=== PATIENT | female | born 1960 | race Caucasian/White ===

== ENCOUNTER → 2019-06-04 14:30 | Outpatient (CLI) | payer OTHER, SELFPAY ==
--- NOTE | 2019-06-04 | DI.MG.S_ITS ---
BILATERAL DIGITAL SCREENING MAMMOGRAM 3D/2D WITH CAD: 06/04/2019 CLINICAL: Routine screening. Comparison is made to exams dated: 07/24/2015 mammogram, 06/26/2012 mammogram, and 11/13/2009 mammogram - [facility]. There are scattered fibroglandular elements in both breasts. Current study was also evaluated with a Computer Aided Detection (CAD) system. No significant masses, calcifications, or other findings are seen in either breast. There has been no significant interval change. IMPRESSION: NEGATIVE There is no mammographic evidence of malignancy. A 1 year screening mammogram is recommended. This exam was interpreted at Station ID: [id number]. NOTE: For mammograms, a report in lay terms will be sent to the patient. Approximately 15% of breast malignancies will not be visualized mammographically. In the management of a palpable breast mass, a negative mammogram must not discourage biopsy of a clinically suspicious lesion. Electronically Signed By: Tiny campbell/marco antonio:06/04/2019 16:37:24 letter sent: Normal Exam ACR BI-RADS Category 1: Negative 3341F
== END ==
PROVIDERS: PCP Family Medicine; Visit Provider Family Medicine
DX: Z12.31 Encounter for screening mammogram for malignant neoplasm of breast (principal)
CPT/HCPCS: 77063; 77067

== ENCOUNTER → 2019-07-01 09:28 | Outpatient (CLI) | payer OTHER, SELFPAY ==
[2019-07-01 10:37] LABS: Add Manual Diff / Slide Review NO; Basophils Absolute Auto 0 /uL (0-100); Basophils Percent Auto 0.7 % (0-2); Eosinophils Absolute Auto 100 /uL (0-450); Eosinophils Percent Auto 1.9 % (2-4); Hematocrit 42.7 % (36-46); Hemoglobin 14.3 g/dL (12.0-16.0); Lymphocytes Absolute Auto 1700 /uL (1100-4500); Lymphocytes Percent Auto 29.3 % (25-40); Mean Corpuscular HGB Conc 33.6 % (30-36); Mean Corpuscular Hemoglobin 31.1 PG (26-34); Mean Corpuscular Volume 92.7 fL (80-100); Monocytes Absolute Auto 500 /uL (0-900); Neutrophils Absolute Auto 3400 /uL (1500-7000); Neutrophils Percent Auto 60.1 % (50-75); Platelet Count 167 X10^3/uL (150-400); Red Blood Cell Count 4.61 X10^6/uL (4.0-5.2); Red Cell Distribution Width 13.1 % (11.6-14.8); White Blood Cell Count 5.7 X10^3/uL (4.5-11.0)
[2019-07-01 11:02] LABS: Alanine Aminotransferase 22 IU/L (<35); Albumin 4.5 g/dL (3.5-5.0); Albumin Globulin Ratio 2.1 (1.0-2.8); Alkaline Phosphatase 65 U/L (38-126); Aspartate Aminotransferase 26 IU/L (14-36); BUN Creatinine Ratio 22.9 (6-22); Bilirubin Total 0.7 mg/dL (0.2-1.3); Blood Urea Nitrogen 16 mg/dL (7-17); Carbon Dioxide 28 mmol/L (22-32); Chloride 106 mmol/L (98-107); Cholesterol 222 mg/dL (140-199); Estimated Glomerular Filt Rate > 60.0 mL/min (>60); Globulin 2.1 g/dL (1.7-4.1); Glucose 92 mg/dL (80-110); HDL Cholesterol 79 mg/dL (40-60); HEMOLYSIS < 15 (0-50); LDL Cholesterol Calculated 124 mg/dL (<100); Potassium 4.9 mmol/L (3.4-5.1); Sodium 141 mmol/L (137-145); Total Protein 6.6 g/dL (6.3-8.2); Triglycerides 95 mg/dL (35-150)
[2019-07-01 11:30] LABS: Thyroid Stimulating Hormone 1.95 uIU/mL (0.47-4.68)
== END ==
PROVIDERS: PCP Family Medicine; Visit Provider Family Medicine
DX: Z13.220 Encounter for screening for lipoid disorders (principal); Z13.29 Encounter for screening for other suspected endocrine disorder; Z13.6 Encounter for screening for cardiovascular disorders
CPT/HCPCS: 36415; 80053; 80061; 84443; 85025

== ENCOUNTER → 2020-06-24 09:09 | Outpatient (CLI) | payer OTHER, SELFPAY ==
[2020-06-24 11:20] LABS: COVID19 -Nasal RAPID Negative (Negative)
== END ==
PROVIDERS: PCP Family Medicine; Visit Provider Nurse Practitioner
DX: Z11.59 Encounter for screening for other viral diseases (principal)
CPT/HCPCS: 87635

== ENCOUNTER 2020-06-26 06:36 | Day surgery (SDC) | payer OTHER, SELFPAY ==
[2020-06-26] VITALS (14 sets, daily range): BP systolic 150–178; BP diastolic 83–102; PULSE 48–73; RESP 10–18; TEMP 35.7–36.6; O2SAT 93–97; BMI 27.3
--- NOTE | 2020-06-26 | DI.RAD.S_ITS ---
PROCEDURE: XR ABDOMEN 1V INDICATIONS: nausea after colonoscopy r/o free air TECHNIQUE: One view of the abdomen acquired. COMPARISON: None. FINDINGS: Surgical changes and devices: None. Bowel: Bowel gas pattern is normal. Soft tissues: No suspicious abdominal calcifications. Visualized solid organ contours appear normal in size. Bones: No suspicious bony lesions. IMPRESSION: No acute process. Dictated by: Evita Knight M.D. on 06/26/2020 at 9:29 Approved by: Evita Knight M.D. on 06/26/2020 at 9:30
[2020-06-26] MEDS: LACTATED RINGERS 1,000 ML 200 ML IV ×2 (07:32→08:59)
--- NOTE | 2020-06-26 07:46 | P.HP_ITS ---
History of Present Illness History of Present Illness Date Patient Seen: 06/26/20 Time Patient Seen: 07:46 Chief complaint: [facility] [place] Narrative: The patient presents for colorectal sreening. She had a previous colonoscopy 6 years ago which was significant for benign polyps which were removed. No personal or family history of colon cancer. On further history denies any recent gastrointestinal symptoms. No nausea, vomiting, abdominal pain, loss of appetite, unexplained weight loss, change in bowel habits, diarrhea, constipation, melena, hematochezia, or bright red blood per rectum. Patient History Surgical History Status post colonoscopy (10/15/13) Status post tubal ligation Family & Social History Social History: household members spouse Tobacco & Substance use: Tobacco type cannabis/marijuana Smoking Status Current some day smoker alcohol intake frequency 0-2 drinks per day Substance Use Type marijuana Meds Home Medications and Allergies Home Medications Medication Instructions Recorded Confirmed Type No Known Home Medications 07/06/19 07/06/19 History Allergies Allergy/AdvReac Type Severity Reaction Status Date / Time No Known Drug Allergies Allergy Unverified 07/06/19 10:49 Review of Systems Review of Systems Narrative: A 10 point review of systems is negative except as noted in the HPI Exam Vital Signs (past 8 hours): - 06/26/20 07:15 Temperature 98 F Pulse Rate 73 Respiratory Rate 16 Blood Pressure 150/89 H Pulse Oximetry 97 Oxygen Delivery Method Room Air Narrative Exam Narrative: General-no acute distress, well nourished adult woman HEENT-moist mucous membranes, no scleral icterus Neck-supple, no lymphadenopathy Chest- non labored respirations, clear to auscultation bilaterally Cardiac-regular rate no peripheral edema Abdomen-soft, nontender, non distended Extremities-warm, well perfused Neurological-alert and oriented, no focal deficits Assessment & Plan Assessment and plan (1) Polyp of colon: Status: None Assessment & Plan narrative: The patient requires colorectal screening and colonoscopy is recommended. Technical details were discussed. Risks, benefits, alternatives explained. Risks including but not limited to myocardial infarction, aspiration, bleeding, pain, missed lesion, incomplete examination, need for further radiographic studies, colonic perforation, and need for major abdominal surgery were discussed. All questions were answered to their satisfaction, and they are in agreement with this plan.
[2020-06-26] MEDS: fentaNYL 250 MCG/5 ML INJ IV (07:49)
[2020-06-26] MEDS: MIDAZOLAM 5 MG/5 ML VIAL IV (07:49)
--- NOTE | 2020-06-26 07:49 | PM.OP.ENDO ---
Operative Date/Time/Diagnoses Date of procedure: 06/26/20 Time of procedure: 07:49 Pre-op diagnosis: personal history of colonic polyps Post-op diagnosis: other (diverticulosis, internal hemorrhoids) Procedure & Clinicians Study performed: colonoscopy Same procedure as scheduled: Yes Indications: personal history of colonic polyps Surgeon: Preet Hanna Procedure Notes SCOAP/Timeout: Performed Procedure in detail: Medications: Conscious sedation using 6mg IV midazolam and 250mcg IV of fentanyl The history and physical was performed/updated and the patient is ASA class is 1. The procedure was discussed in detail with the patient. Potential risks complications including infection, bleeding, missed diagnosis, perforation, need for surgery, and were explained. Their questions were answered and informed consent was obtained. Patient was brought to the procedure room and placed standard monitoring equipment. The patient's vital signs were monitored continuously throughout the entire procedure. Prior to starting time-out was performed. The ablation patient was placed in the left lateral recumbent position. Procedural sedation was administered. Examination began with a thorough inspection of the perianal area there was no evidence of fissures, fistulae, external hemorrhoids or cutaneous malignancy. The colonoscopy scope was then placed into the anal canal and was advanced to the cecum, which was identified by the ileocecal valve, the appendiceal orifice and the confluence of the taenia. The scope was then slowly withdrawn examining colon thoroughly in all directions, irrigating it of any residual stool. No masses or polyps Sigmoid diverticulosis Grade 1 internal hemorrhoids The patient tolerated the procedure well. They will be discharged once criteria are met. The prep was of good/excellent quality. The withdrawl time was 9 minutes. The sedation time was 29 minutes. Specimen(s): none sent Complications: none Impression: Diverticulosis Post-procedure Recommendations: Colonscopy in 10 years Disposition: same day surgery
[2020-06-26] MEDS: ONDANSETRON 4 MG/2 ML INJ IV ×2 (08:20→09:17)
--- NOTE | 2020-06-26 08:48 | SUR.PHASEI ---
Addendum entered by Royal Duggan R.N. 06/26/20 09:08: Spoke with Dr. Hanna about pt's continued nausea\vomiting. New orders for additional administration of 4mg ondansetron and abdominal x-ray received. Addendum entered by Royal Duggan R.N. 06/26/20 08:55: Provided Quease Ease aromatherapy with some relief from symptoms. Original Note: Pt arrived from Endoscopy with N\V, RN reported that pt had received 4mg Ondansetron in the Endo suite prior to transport to PACU. Hypertension noted, otherwise VSS. Pt continued to have symptomatic N/V in PACU. Allowing pt to rest\sleep to see if nausea resolves, otherwise will contact physician for additional medication orders.
== END 2020-06-26 09:55 | disposition home or self-care (01) ==
PROVIDERS: PCP Family Medicine; Referring Provider Family Medicine; Visit Provider Surgery
PROC: 0DJD8ZZ Inspection of Lower Intestinal Tract, Via Natural or Artificial Opening Endoscopic (ICD-10-PCS; CPT 45378; principal; 2020-06-26 07:45)
DX: Z12.11 Encounter for screening for malignant neoplasm of colon (principal); Z86.010 Personal history of colon polyps; K57.30 Diverticulosis of large intestine without perforation or abscess without bleeding; K64.0 First degree hemorrhoids
CPT/HCPCS: 45378; 74018; 99152; 99153; J2250; J2405; J3010

== ENCOUNTER → 2020-07-06 08:23 | Outpatient (CLI) | payer OTHER, SELFPAY ==
[2020-07-06 09:24] LABS: Add Manual Diff / Slide Review NO; Basophils Absolute Auto 0 /uL (0-100); Basophils Percent Auto 0.8 % (0-2); Eosinophils Absolute Auto 100 /uL (0-450); Eosinophils Percent Auto 2.1 % (2-4); Hematocrit 42.9 % (36-46); Hemoglobin 14.5 g/dL (12.0-16.0); Lymphocytes Absolute Auto 1800 /uL (1100-4500); Lymphocytes Percent Auto 28.4 % (25-40); Mean Corpuscular HGB Conc 33.7 % (30-36); Mean Corpuscular Hemoglobin 31.4 PG (26-34); Mean Corpuscular Volume 93.2 fL (80-100); Monocytes Absolute Auto 500 /uL (0-900); Monocytes Percent Auto 7.5 % (3-14); Neutrophils Absolute Auto 3800 /uL (1500-7000); Neutrophils Percent Auto 61.2 % (50-75); Platelet Count 173 X10^3/uL (150-400); White Blood Cell Count 6.2 X10^3/uL (4.5-11.0)
[2020-07-06 10:14] LABS: Alanine Aminotransferase 21 IU/L (<35); Albumin 4.1 g/dL (3.5-5.0); Albumin Globulin Ratio 1.6 (1.0-2.8); Alkaline Phosphatase 61 U/L (38-126); Aspartate Aminotransferase 24 IU/L (14-36); BUN Creatinine Ratio 16.4 (6-22); Bilirubin Total 0.7 mg/dL (0.2-1.3); Blood Urea Nitrogen 12 mg/dL (7-17); Calcium 9.7 mg/dL (8.4-10.2); Carbon Dioxide 28 mmol/L (22-32); Chloride 107 mmol/L (98-107); Cholesterol 239 mg/dL (140-199); Estimated Glomerular Filt Rate > 60.0 mL/min (>60); Globulin 2.5 g/dL (1.7-4.1); Glucose 95 mg/dL (80-110); HDL Cholesterol 77 mg/dL (40-60); HEMOLYSIS < 15 (0-50); LDL Cholesterol Calculated 123 mg/dL (<100); Potassium 4.7 mmol/L (3.4-5.1); Sodium 138 mmol/L (137-145); Total Protein 6.6 g/dL (6.3-8.2); Triglycerides 197 mg/dL (35-150)
== END ==
PROVIDERS: PCP Family Medicine; Referring Provider Family Medicine; Visit Provider Family Medicine
DX: E78.5 Hyperlipidemia, unspecified (principal)
CPT/HCPCS: 36415; 80053; 80061; 85025

== ENCOUNTER → 2021-01-05 08:33 | Outpatient (CLI) | payer OTHER, SELFPAY ==
[2021-01-05] MEDS: COVID-19 VACC, Ad26(JANSSEN)/PF 0.5 ML IM (08:46)
== END ==
PROVIDERS: PCP Family Medicine; Visit Provider Internal Medicine
DX: Z23 Encounter for immunization (principal)
CPT/HCPCS: 0031A; 91303

== ENCOUNTER → 2021-05-31 16:35 | Outpatient (CLI) | payer OTHER, SELFPAY ==
--- NOTE | 2021-05-31 | DI.MG.S_ITS ---
BILATERAL DIGITAL SCREENING MAMMOGRAM 3D/2D WITH CAD: 05/31/2021 CLINICAL: Routine screening. Comparison is made to exams dated: 06/04/2019 mammogram, 07/24/2015 mammogram, and 06/26/2012 mammogram - [facility]. There are scattered fibroglandular elements in both breasts. Current study was also evaluated with a Computer Aided Detection (CAD) system. No significant masses, calcifications, or other findings are seen in either breast. There has been no significant interval change. IMPRESSION: NEGATIVE There is no mammographic evidence of malignancy. A 1 year screening mammogram is recommended. This exam was interpreted at Station ID: [id number]. NOTE: For mammograms, a report in lay terms will be sent to the patient. Approximately 15% of breast malignancies will not be visualized mammographically. In the management of a palpable breast mass, a negative mammogram must not discourage biopsy of a clinically suspicious lesion. Electronically Signed By: Brant Jon M.D. at/marco antonio:05/31/2021 17:26:17 letter sent: Normal Exam ACR BI-RADS Category 1: Negative 3341F
== END ==
PROVIDERS: PCP Internal Medicine; Referring Provider Internal Medicine; Visit Provider Internal Medicine
DX: Z12.31 Encounter for screening mammogram for malignant neoplasm of breast (principal)
CPT/HCPCS: 77063; 77067

== ENCOUNTER → 2021-07-07 08:24 | Outpatient (CLI) | payer OTHER, SELFPAY ==
[2021-07-07 10:48] LABS: Add Manual Diff / Slide Review NO; Basophils Absolute Auto 0 /uL (0-100); Basophils Percent Auto 0.7 % (0-2); Eosinophils Absolute Auto 100 /uL (0-450); Eosinophils Percent Auto 1.9 % (2-4); Hematocrit 44.1 % (36-46); Hemoglobin 14.7 g/dL (12.0-16.0); Lymphocytes Absolute Auto 1800 /uL (1100-4500); Lymphocytes Percent Auto 30.9 % (25-40); Mean Corpuscular HGB Conc 33.3 % (30-36); Mean Corpuscular Hemoglobin 30.8 PG (26-34); Mean Corpuscular Volume 92.5 fL (80-100); Monocytes Absolute Auto 400 /uL (0-900); Monocytes Percent Auto 7.5 % (3-14); Neutrophils Absolute Auto 3500 /uL (1500-7000); Platelet Count 213 X10^3/uL (150-400); Red Blood Cell Count 4.77 X10^6/uL (4.0-5.2); Red Cell Distribution Width 12.8 % (11.6-14.8); White Blood Cell Count 5.9 X10^3/uL (4.5-11.0)
[2021-07-07 11:06] LABS: Erythrocyte Sedimentation Rate 2 MM/HR (0-20)
[2021-07-07 11:49] LABS: TSH w/ Reflex to FT4 3.38 uIU/mL (0.47-4.68)
[2021-07-07 12:18] LABS: Alanine Aminotransferase 22 IU/L (<35); Albumin 4.3 g/dL (3.5-5.0); Albumin Globulin Ratio 1.9 (1.0-2.8); Alkaline Phosphatase 60 U/L (38-126); Aspartate Aminotransferase 22 IU/L (14-36); BUN Creatinine Ratio 14.3 (6-22); Bilirubin Total 0.7 mg/dL (0.2-1.3); Blood Urea Nitrogen 11 mg/dL (7-17); C-Reactive Protein Quant < 0.5 mg/dL (<1.0); Calcium 9.6 mg/dL (8.4-10.2); Carbon Dioxide 26 mmol/L (22-32); Chloride 108 mmol/L (98-107); Cholesterol 242 mg/dL (140-199); Estimated Glomerular Filt Rate > 60.0 mL/min (>60); Globulin 2.3 g/dL (1.7-4.1); Glucose 92 mg/dL (80-110); HDL Cholesterol 89 mg/dL (40-60); HEMOLYSIS < 15 (0-50); LDL Cholesterol Calculated 126 mg/dL (<100); Potassium 3.9 mmol/L (3.4-5.1); Sodium 143 mmol/L (137-145); Total Protein 6.6 g/dL (6.3-8.2); Triglycerides 135 mg/dL (35-150)
== END ==
PROVIDERS: PCP Internal Medicine; Referring Provider Internal Medicine; Visit Provider Internal Medicine
DX: E78.2 Mixed hyperlipidemia (principal); R61 Generalized hyperhidrosis; R53.1 Weakness
CPT/HCPCS: 36415; 80053; 80061; 84443; 85025; 85651; 86140

== ENCOUNTER → 2021-09-21 07:50 | Outpatient (CLI) | payer OTHER, SELFPAY ==
[2021-09-21 11:39] LABS: Cholesterol 179 mg/dL (140-199); HDL Cholesterol 55 mg/dL (40-60); LDL Cholesterol Calculated 104 mg/dL (<100); Triglycerides 100 mg/dL (35-150)
[2021-09-24 06:51] LABS: Fecal Immunochemical Test Negative (Negative)
[2021-09-24 15:54] LABS: Hep C Virus Ab w/Reflex Quant NEGATIVE s/c (NEGATIVE)
== END ==
PROVIDERS: PCP Nurse Practitioner; Referring Provider Nurse Practitioner; Visit Provider Nurse Practitioner
DX: Z12.11 Encounter for screening for malignant neoplasm of colon (principal); Z11.59 Encounter for screening for other viral diseases; Z78.9 Other specified health status
CPT/HCPCS: 36415; 80061; 82274; 86803

== ENCOUNTER 2022-05-28 08:36 | Emergency (ER) | payer OTHER, SELFPAY ==
[2022-05-28] VITALS (15 sets, daily range): BP systolic 179–219; BP diastolic 100–111; PULSE 57–71; RESP 15–23; TEMP 36.4; O2SAT 94–98; BMI 26.6
--- NOTE | 2022-05-28 09:04 | DI.RAD.S_ITS ---
PROCEDURE: XR CHEST 1V INDICATIONS: chest pain TECHNIQUE: One view of the chest was acquired. COMPARISON: None. FINDINGS: Surgical changes and devices: None. Lungs and pleura: Lungs are clear. No pleural effusions or pneumothorax. Mediastinum: Mediastinal contours appear normal. Heart size is normal. Bones and chest wall: No suspicious bony lesions. Overlying soft tissues appear unremarkable. IMPRESSION: Unremarkable portable chest for age. Dictated by: Reyes Pascual M.D. on 05/28/2022 at 8:19 Approved by: Reyes Pascual M.D. on 05/28/2022 at 8:19
--- NOTE | 2022-05-28 09:33 | ED_ITS ---
HPI - Arrhythmia/Palpitations General Chief Complaint: Arrhythmia/Palpitations Stated Complaint: sent by [facility] rapid heart rate 05/24 bp is high 176 Time Seen by Provider: 05/28/22 08:57 Source: patient Mode of arrival: Ambulatory History of Present Illness HPI narrative: Ms. Cain is a 61-year-old woman with hypertension. She came to the ER at the encouragement of her EMT daughter. Last Friday she had an episode for a few minutes of tachycardia where her heart rate was between 160 and 170. She said she felt a sharp pain in the center of her chest at that time and was very sweaty. She also felt somewhat short of breath. She says she also had pain in the back of her neck while she was having a fast heart rate. The neck pain has persisted though the chest pain has resolved. She is noted that her blood pressure has been very high recently. She has a little bit of low back pain now as well. No nausea currently, no chest pain currently. No shortness of breath or fever or other symptoms at this time. No GI symptoms at this time. Past medical history remarkable for hypertension only. She does develop a cough when she takes her lisinopril. This is the only antihypertensive prescribed currently. She smokes marijuana but not tobacco. Related Data Previous Rx's Medication Instructions Recorded fluconazole 150 mg tablet 150 mg PO Q3D 2 doses #2 tabs 09/17/21 (Diflucan) miscellaneous medical supply #1 ea 09/17/21 (Blood Pressure Cuff) lisinopril 5 mg tablet 5 mg PO DAILY #90 tabs 09/26/21 metoprolol succinate 25 mg 25 mg PO DAILY #30 tabs 05/28/22 tablet,extended release 24 hr Allergies Allergy/AdvReac Type Severity Reaction Status Date / Time No Known Drug Allergies Allergy Verified 05/28/22 09:04 Review of Systems Review of Systems Narrative: Complete review of systems negative other than as noted above. Patient History Medical History (Updated 05/28/22 @ 11:27 by Zay Stoner MD) Closed head injury Diverticula of colon (11/20/11) High risk HPV infection Hypertension, essential LDL-c greater than or equal to 100 mg/dl Polyp of colon (07/14/15) Psoriasis (07/14/15) Surgical History Status post colonoscopy (10/15/13) Status post tubal ligation Social History household members: spouse Smoking Status: Current some day smoker Smoking Status: Current some day smoker alcohol intake frequency: 3 or more drinks per day Substance Use Type: marijuana Exam Narrative Exam Narrative: GENERAL: Alert, cooperative and in no distress. HEAD: Atraumatic. Normocephalic. EYES: Sclera are clear without icterus. Extraocular movements are full. ENT: No rhinorrhea NECK: Supple. Full range of motion. CARDIOVASCULAR: Normal rate and rhythm without murmur gallop or rub. RESPIRATORY: Clear to auscultation. Breath sounds equal bilaterally. No wheezes, rales, or rhonchi. GASTROINTESTINAL: Abdomen soft, non-tender, nondistended. EXTREMITIES: No edema, full range of motion. No obvious trauma. BACK: Normal inspection, no CVA tenderness. NEURO: Nonfocal examination, normal speech. SKIN: No rash or erythema of visible areas PSYCH: Normally oriented. Normal range of affect. Appropriate behavior Initial Vital Signs Initial Vital Signs: Vital Signs Temperature 97.6 F 05/28/22 09:00 Pulse Rate 64 05/28/22 09:00 Respiratory Rate 22 05/28/22 09:00 Blood Pressure 190/104 H 05/28/22 09:00 Pulse Oximetry 96 05/28/22 09:00 Oxygen Delivery Method 05/28/22 09:00 Course Orders Ordered: ED Orders 05/28/22 09:04 XR chest 1V Stat EKG-12 Lead Stat 05/28/22 09:52 Complete Blood Count AUTO DIFF Stat Comprehensive Metabolic Panel Stat Lipase Stat Magnesium Stat Partial Thromboplastin Time Stat Prothrombin Time INR Stat TSH [Thyroid Stimulating Hormone] Stat Troponin & CK Cardiac Panel Stat Discontinued Medications Metoprolol Tartrate (Metoprolol Ir 25 Mg Tablet) 25 mg PO NOW ONE Stop: 05/28/22 10:28 Last Admin: 05/28/22 11:18 Dose: 25 mg Documented By: ARTEMIO Vital Signs Vital signs: Vital Signs - 8 hr 05/28/22 09:00 05/28/22 11:18 05/28/22 09:01 Temperature 97.6 F Pulse Rate 64 71 68 Respiratory Rate 22 22 Blood Pressure 190/104 H 195/105 H Pulse Oximetry 96 98 97 Oxygen Delivery Method Room Air Room Air 05/28/22 09:02 05/28/22 09:02 05/28/22 09:04 Temperature Pulse Rate 67 66 Respiratory Rate 23 Blood Pressure 219/111 H Pulse Oximetry 96 95 Oxygen Delivery Method 05/28/22 09:04 05/28/22 09:30 05/28/22 09:30 Temperature Pulse Rate 66 Respiratory Rate Blood Pressure 190/104 H 204/104 H Pulse Oximetry 96 Oxygen Delivery Method 05/28/22 10:00 05/28/22 10:00 05/28/22 10:30 Temperature Pulse Rate 57 L 59 L Respiratory Rate 20 17 Blood Pressure 194/102 H Pulse Oximetry 97 94 Oxygen Delivery Method 05/28/22 10:31 05/28/22 10:31 05/28/22 11:00 Temperature Pulse Rate 60 Respiratory Rate 17 Blood Pressure 189/104 H 192/103 H Pulse Oximetry 95 Oxygen Delivery Method 05/28/22 11:00 Temperature Pulse Rate 67 Respiratory Rate 20 Blood Pressure Pulse Oximetry 98 Oxygen Delivery Method MDM - Arrhythmia/Palpitations Lab Data Result diagrams: 05/28/22 09:52 05/28/22 09:52 Labs: Lab Results 05/28/22 05/28/22 05/28/22 Range/Units 09:52 09:52 09:52 WBC 8.2 (4.5-11.0) X10^3/uL RBC 4.75 (4.0-5.2) X10^6/uL Hgb 14.7 (12.0-16.0) g/dL Hct 43.7 (36-46) % MCV 91.9 (80-100) fL MCH 30.9 (26-34) PG MCHC 33.6 (30-36) % RDW 12.8 (11.6-14.8) % Plt Count 175 (150-400) X10^3/uL Neut % (Auto) 76.0 H (50-75) % Lymph % (Auto) 16.4 L (25-40) % Blackford % (Auto) 6.1 (3-14) % Eos % (Auto) 1.0 L (2-4) % Baso % (Auto) 0.5 (0-2) % Neut # (Auto) 6200 (7494-5495) /uL Lymph # (Auto) 1300 (6279-9983) /uL Blackford # (Auto) 500 (0-900) /uL Eos # (Auto) 100 (0-450) /uL Baso # (Auto) 0 (0-100) /uL PT 11.9 (10.1-12.7) SECONDS INR 1.0 (0.9-1.3) APTT 32 (26-36) SECONDS Sodium 142 (137-145) mmol/L Potassium 4.0 (3.4-5.1) mmol/L Chloride 108 H (98-107) mmol/L Carbon Dioxide 25 (22-32) mmol/L BUN 13 (7-17) mg/dL Creatinine 0.63 (0.52-1.04) mg/dL Estimated GFR > 60 (>60) mL/min BUN/Creatinine Ratio 20.6 (6-22) Glucose 105 (80-110) mg/dL Calcium 9.3 (8.4-10.2) mg/dL Magnesium 1.8 (1.6-2.3) mg/dL Total Bilirubin 0.8 (0.2-1.3) mg/dL AST 22 (14-36) IU/L ALT 20 (<35) IU/L Alkaline Phosphatase 68 (38-126) U/L Total Creatine Kinase 37 (30-135) U/L CK-MB (CK-2) TNP CK-MB (CK-2) Rel Index TNP Troponin I < 0.012 (0.01-0.034) ng/mL Total Protein 7.0 (6.3-8.2) g/dL Albumin 4.3 (3.5-5.0) g/dL Globulin 2.7 (1.7-4.1) g/dL Albumin/Globulin Ratio 1.6 (1.0-2.8) Lipase 30 (23-300) U/L TSH (0.47-4.68) uIU/mL 05/28/22 Range/Units 09:52 WBC (4.5-11.0) X10^3/uL RBC (4.0-5.2) X10^6/uL Hgb (12.0-16.0) g/dL Hct (36-46) % MCV (80-100) fL MCH (26-34) PG MCHC (30-36) % RDW (11.6-14.8) % Plt Count (150-400) X10^3/uL Neut % (Auto) (50-75) % Lymph % (Auto) (25-40) % Blackford % (Auto) (3-14) % Eos % (Auto) (2-4) % Baso % (Auto) (0-2) % Neut # (Auto) (4435-3777) /uL Lymph # (Auto) (0158-4827) /uL Blackford # (Auto) (0-900) /uL Eos # (Auto) (0-450) /uL Baso # (Auto) (0-100) /uL PT (10.1-12.7) SECONDS INR (0.9-1.3) APTT (26-36) SECONDS Sodium (137-145) mmol/L Potassium (3.4-5.1) mmol/L Chloride (98-107) mmol/L Carbon Dioxide (22-32) mmol/L BUN (7-17) mg/dL Creatinine (0.52-1.04) mg/dL Estimated GFR (>60) mL/min BUN/Creatinine Ratio (6-22) Glucose (80-110) mg/dL Calcium (8.4-10.2) mg/dL Magnesium (1.6-2.3) mg/dL Total Bilirubin (0.2-1.3) mg/dL AST (14-36) IU/L ALT (<35) IU/L Alkaline Phosphatase (38-126) U/L Total Creatine Kinase (30-135) U/L CK-MB (CK-2) CK-MB (CK-2) Rel Index Troponin I (0.01-0.034) ng/mL Total Protein (6.3-8.2) g/dL Albumin (3.5-5.0) g/dL Globulin (1.7-4.1) g/dL Albumin/Globulin Ratio (1.0-2.8) Lipase (23-300) U/L TSH 2.13 (0.47-4.68) uIU/mL Imaging Data Chest x-ray: Radiologist's Impresson: IMPRESSION:? Unremarkable portable chest for age. ? ? Dictated by: Reyes Pascual M.D. on 05/28/2022 at 8:19 ? ? Approved by: Reyes Pascual M.D. on 05/28/2022 at 8:19 ? ECG Data Interpretation: ECG obtained at 9:05 a.m. reveals sinus rhythm at 65 beats per minute with a QTC of 438. This is normal EKG. [facility] Narrative Medical decision making narrative: Fleeting chest pain a few days ago with persistent back pain. Equal pulses in the arms bilaterally. No wide mediastinum. I do not suspect pulmonary embolism, aortic dissection, acute coronary ischemia. She does have uncontrolled hypertension and I will prescribe metoprolol succinate 25 mg daily. Recommend close outpatient follow-up. Careful return precautions given. Discharge Plan Departure Patient Disposition: Home Clinical Impression: Chest pain, Hypertension Activity Restrictions/Additional Instructions: No immediately dangerous cause for your chest pain episode was identified today. No evidence of heart attack, a day aortic dissection, pulmonary embolism or other immediately dangerous process is identified. I recommend close follow-up with your doctor. I recommend 81 mg of aspirin daily and I recommend metoprolol 25 mg daily. Return to the ER for new or worsening symptoms especially if they are associated with chest pain or shortness of breath or diaphoresis. Prescriptions: New metoprolol succinate 25 mg tablet extended release 24 hr 25 mg PO DAILY Qty: 30 0RF No Action lisinopril 5 mg tablet 5 mg PO DAILY Qty: 90 1RF Rx Instructions: Take 1 tab by mouth at bedtime daily for bood pressure goal <140/90 c onsistently (DME) Blood Pressure Cuff Misc See Rx Instructions .Route Qty: 1 0RF Rx Instructions: As directed fluconazole [Diflucan] 150 mg tablet 150 mg PO Q3D Qty: 2 0RF Rx Instructions: Take 1 tab every 72 hours x2 for vaginal yeast infection Referrals: Gisel Parr ARNP [Primary Care Provider] -
[2022-05-28 10:04] LABS: Add Manual Diff / Slide Review NO; Basophils Absolute Auto 0 /uL (0-100); Basophils Percent Auto 0.5 % (0-2); Eosinophils Absolute Auto 100 /uL (0-450); Hematocrit 43.7 % (36-46); Hemoglobin 14.7 g/dL (12.0-16.0); Lymphocytes Absolute Auto 1300 /uL (1100-4500); Lymphocytes Percent Auto 16.4 % (25-40); Mean Corpuscular HGB Conc 33.6 % (30-36); Mean Corpuscular Hemoglobin 30.9 PG (26-34); Mean Corpuscular Volume 91.9 fL (80-100); Monocytes Absolute Auto 500 /uL (0-900); Monocytes Percent Auto 6.1 % (3-14); Neutrophils Absolute Auto 6200 /uL (1500-7000); Platelet Count 175 X10^3/uL (150-400); Red Blood Cell Count 4.75 X10^6/uL (4.0-5.2); Red Cell Distribution Width 12.8 % (11.6-14.8); White Blood Cell Count 8.2 X10^3/uL (4.5-11.0)
[2022-05-28 10:11] LABS: Prothrombin Time 11.9 SECONDS (10.1-12.7)
[2022-05-28 10:14] LABS: PTT Partial Thromboplastin Tim 32 SECONDS (26-36)
[2022-05-28 10:15] LABS: Alanine Aminotransferase 20 IU/L (<35); Albumin 4.3 g/dL (3.5-5.0); Albumin Globulin Ratio 1.6 (1.0-2.8); Alkaline Phosphatase 68 U/L (38-126); Aspartate Aminotransferase 22 IU/L (14-36); BUN Creatinine Ratio 20.6 (6-22); Bilirubin Total 0.8 mg/dL (0.2-1.3); Blood Urea Nitrogen 13 mg/dL (7-17); Calcium 9.3 mg/dL (8.4-10.2); Carbon Dioxide 25 mmol/L (22-32); Chloride 108 mmol/L (98-107); Creatine Kinase 37 U/L (30-135); Estimated Glomerular Filt Rate > 60 mL/min (>60); Globulin 2.7 g/dL (1.7-4.1); Glucose 105 mg/dL (80-110); HEMOLYSIS < 15 (0-50); Lipase 30 U/L (23-300); Magnesium 1.8 mg/dL (1.6-2.3); Sodium 142 mmol/L (137-145)
[2022-05-28 10:26] LABS: Troponin I < 0.012 ng/mL (0.01-0.034)
[2022-05-28 10:49] LABS: Thyroid Stimulating Hormone 2.13 uIU/mL (0.47-4.68)
[2022-05-28] MEDS: METOPROLOL IR 25 MG TABLET PO (11:18)
--- NOTE | 2022-05-28 11:27 | PC.NURSE ---
Reports had rapid heart rate and feeling sweaty on friday and has been having elevated BP. Stopped lisinopril due to cough. Denies chest pain or symptoms currently.
== END 2022-05-28 11:53 | disposition home or self-care (01) ==
PROVIDERS: Emergency Provider Family Medicine Addiction Medicine; PCP Nurse Practitioner
DX: R07.9 Chest pain, unspecified (principal); I10 Essential (primary) hypertension; Z79.899 Other long term (current) drug therapy
CPT/HCPCS: 36415; 71045; 80053; 82550; 83690; 83735; 84443; 84484; 85025; 85610; 85730; 93005; 99284

== ENCOUNTER → 2022-08-10 11:12 | Outpatient (CLI) | payer OTHER, SELFPAY ==
--- NOTE | 2022-08-10 11:13 | DI.MG.S_ITS ---
BILATERAL DIGITAL SCREENING MAMMOGRAM 3D/2D WITH CAD: 08/10/2022 CLINICAL: Routine screening. Comparison is made to exams dated: 05/31/2021 mammogram and 06/04/2019 mammogram - [facility]. There are scattered areas of fibroglandular density in both breasts (category b / 25%-50% glandular tissue). Current study was also evaluated with a Computer Aided Detection (CAD) system. No significant masses, calcifications, or other findings are seen in either breast. There has been no significant interval change. IMPRESSION: NEGATIVE There is no mammographic evidence of malignancy. A 1 year screening mammogram is recommended. Based on the Tyrer Cuzick model (a risk assessment model) the patient's lifetime risk is 5.6% and her 10 year risk is 2.6%. According to the ACR, ACS, and NCCN guidelines, an annual breast MRI exam along with mammogram is recommended if the patient's lifetime risk is 20% or greater. This exam was interpreted at Station ID: [id number]. NOTE: For mammograms, a report in lay terms will be sent to the patient. Approximately 15% of breast malignancies will not be visualized mammographically. In the management of a palpable breast mass, a negative mammogram must not discourage biopsy of a clinically suspicious lesion. Electronically Signed By: Good morrison/marco antonio:08/12/2022 09:46:50 letter sent: Normal Exam ACR BI-RADS Category 1: Negative 3341F
== END ==
PROVIDERS: PCP Nurse Practitioner; Referring Provider Nurse Practitioner; Visit Provider Nurse Practitioner
DX: Z12.31 Encounter for screening mammogram for malignant neoplasm of breast (principal)
CPT/HCPCS: 77063; 77067

== ENCOUNTER → 2022-09-12 09:14 | Outpatient (CLI) | payer OTHER, SELFPAY ==
[2022-09-12 10:24] LABS: Alanine Aminotransferase 17 IU/L (<35); Albumin 4.2 g/dL (3.5-5.0); Albumin Globulin Ratio 1.9 (1.0-2.8); Alkaline Phosphatase 67 U/L (38-126); Aspartate Aminotransferase 21 IU/L (14-36); BUN Creatinine Ratio 17.9 (6-22); Bilirubin Total 0.7 mg/dL (0.2-1.3); Blood Urea Nitrogen 12 mg/dL (7-17); Calcium 9.2 mg/dL (8.4-10.2); Carbon Dioxide 28 mmol/L (22-32); Chloride 105 mmol/L (98-107); Cholesterol 201 mg/dL (140-199); Estimated Glomerular Filt Rate > 60 mL/min (>60); Globulin 2.2 g/dL (1.7-4.1); Glucose 91 mg/dL (80-110); HDL Cholesterol 85 mg/dL (40-60); HEMOLYSIS < 15 (0-50); LDL Cholesterol Calculated 96 mg/dL (<100); Potassium 4.5 mmol/L (3.4-5.1); Sodium 139 mmol/L (137-145); Total Protein 6.4 g/dL (6.3-8.2); Triglycerides 99 mg/dL (35-150)
[2022-09-12 10:41] LABS: Free T4, Direct Thyroxine 0.94 ng/dL (0.78-2.19)
[2022-09-12 10:55] LABS: Thyroid Stimulating Hormone 1.11 uIU/mL (0.47-4.68)
[2022-09-12 12:16] LABS: Creatinine Urine Random 232.5 mg/dL
[2022-09-12 12:20] LABS: Microalbumin Urine Random 1.4 mg/dL (0-1.6)
[2022-09-13 14:21] LABS: Fecal Immunochemical Test Negative (Negative)
== END ==
PROVIDERS: PCP Nurse Practitioner; Referring Provider Nurse Practitioner; Visit Provider Nurse Practitioner
DX: E78.2 Mixed hyperlipidemia (principal); I10 Essential (primary) hypertension; Z78.9 Other specified health status; Z79.899 Other long term (current) drug therapy; Z12.11 Encounter for screening for malignant neoplasm of colon
CPT/HCPCS: 36415; 80053; 80061; 82043; 82274; 82570; 84439; 84443; 84481

== ENCOUNTER 2023-10-16 08:44 | Emergency (ER) | payer OTHER, SELFPAY ==
[2023-10-16] VITALS (8 sets, daily range): BP systolic 147–183; BP diastolic 94–105; PULSE 63–71; RESP 16–19; TEMP 36.4–36.6; O2SAT 95–97; BMI 26.6
--- NOTE | 2023-10-16 08:46 | DI.RAD.S_ITS ---
PROCEDURE: XR CHEST 1V INDICATIONS: chest pain TECHNIQUE: One view of the chest was acquired. COMPARISON: [facility], CR, XR CHEST 1V, 05/28/2022, 9:05. FINDINGS: Surgical changes and devices: None. Lungs and pleura: Lungs are clear. No pleural effusions or pneumothorax. Mediastinum: Mediastinal contours appear normal. Heart size is normal. Bones and chest wall: No suspicious bony lesions. Overlying soft tissues appear unremarkable. IMPRESSION: No evidence acute pulmonary process. Dictated by: Juan Carlos Brownlee M.D. on 10/16/2023 at 9:28 Approved by: Juan Carlos Brownlee M.D. on 10/16/2023 at 9:28
--- NOTE | 2023-10-16 09:02 | PC.NURSE ---
Pt concerned about high HR and high BP. States she woke up in sweats. Pt reports taking 325mg ASA daily for her symptoms and her BP medicine w/ no improvment. Pt anxious
[2023-10-16 09:03] LABS: Add Manual Diff / Slide Review NO; Basophils Absolute Auto 100 /uL (0-100); Basophils Percent Auto 0.5 % (0-2); Eosinophils Absolute Auto 100 /uL (0-450); Eosinophils Percent Auto 1.1 % (2-4); Hematocrit 48.8 % (36-46); Hemoglobin 16.5 g/dL (12.0-16.0); Lymphocytes Absolute Auto 2400 /uL (1100-4500); Lymphocytes Percent Auto 21.1 % (25-40); Mean Corpuscular HGB Conc 33.9 % (30-36); Mean Corpuscular Hemoglobin 31.1 PG (26-34); Mean Corpuscular Volume 91.8 fL (80-100); Monocytes Absolute Auto 700 /uL (0-900); Monocytes Percent Auto 6.5 % (3-14); Neutrophils Absolute Auto 8000 /uL (1500-7000); Neutrophils Percent Auto 70.8 % (50-75); Platelet Count 216 X10^3/uL (150-400); Red Blood Cell Count 5.32 X10^6/uL (4.0-5.2); Red Cell Distribution Width 13.3 % (11.6-14.8); White Blood Cell Count 11.4 X10^3/uL (4.5-11.0)
[2023-10-16 09:10] LABS: Prothrombin Time 11.6 SECONDS (9.4-12.5)
[2023-10-16 09:13] LABS: PTT Partial Thromboplastin Tim 35 SECONDS (25.1-36.5)
--- NOTE | 2023-10-16 09:14 | ED.GENADULT ---
HPI - General Adult General Chief complaint: Hypertension Stated complaint: heart issues per pt Time Seen by Provider: 10/16/23 08:50 Source: patient and family Mode of arrival: Ambulatory History of Present Illness HPI narrative: 63-year-old woman with a history of hypertension, hyperlipidemia, psoriasis, who presents complaining of pain at the base of her neck as well as blood pressure being elevated over the last 3 days. She describes a discrete episode 3 days ago in the evening where she had her heart pounding her blood pressure cuff indicated that her heart rate was at 190, she was diaphoretic, had chest tightness, pain down the right side of her arm is lasted for a bit more than an hour and the heart rate came down. Since then she is complaining of increased fatigue, has noted that her blood pressure has been significantly elevated despite still taking her usual metoprolol and she has had a tightness at the base of her neck that does not seem positional and is significantly painful. This morning she had an increase in the tightness of the base of her neck and some numbness down the right arm. The numbness down the arm has resolved the neck pain is still present. She notes that she still has vasomotor symptoms from menopause and has had for the last 15 years. These have not worsened. She has not complaining of cough, fevers, abdominal pain, nausea vomiting or diarrhea. She notes that she has not had an appetite over the last 3 days with significant decrease in overall intake. She has been taking 4 baby aspirin daily since the elevated heart rate event. Related Data Home Medications Medication Instructions Recorded Confirmed Aspirin See Rx Instructions .Route .COMPLEX 06/24/22 09/16/22 Previous Rx's Medication Instructions Recorded miscellaneous medical supply #1 ea 09/17/21 (Blood Pressure Cuff) clobetasol 0.05 % topical ointment 1 applic topical QAM AND QPM #15 06/24/22 grams triamcinolone acetonide 0.5 % 1 applic topical TID #15 grams 10/21/22 topical ointment metoprolol succinate 25 mg See Rx Instructions .Route 10/14/23 tablet,extended release 24 hr .COMPLEX #90 tabs amlodipine 5 mg tablet 5 mg PO DAILY #30 tabs 10/16/23 Allergies Allergy/AdvReac Type Severity Reaction Status Date / Time No Known Drug Allergies Allergy Verified 10/16/23 08:58 Review of Systems Review of Systems Narrative: Pertinent positive and negative findings as per HPI Patient History Medical History Closed head injury Diverticula of colon (11/20/11) Elevated heart rate with elevated blood pressure and diagnosis of hypertension High risk HPV infection Hypertension, essential LDL-c greater than or equal to 100 mg/dl Mixed hyperlipidemia Polyp of colon (07/14/15) Psoriasis (07/14/15) Surgical History Status post colonoscopy (10/15/13) Status post tubal ligation Social History household members: spouse Smoking Status: Former smoker Smoking Status: Former smoker alcohol intake frequency: 3 or more drinks per day Substance Use Type: marijuana Exam Initial Vital Signs Initial Vital Signs: Vital Signs Temperature 97.5 F L 10/16/23 08:51 Pulse Rate 69 10/16/23 08:51 Respiratory Rate 17 10/16/23 08:51 Blood Pressure 183/105 H 10/16/23 08:51 Pulse Oximetry 95 10/16/23 08:51 Oxygen Delivery Method Room Air 10/16/23 08:51 General: Healthy appearing, slightly flushed, anxious but able to give a complete and coherent history. Well-nourished well-developed HEENT: Moist mucous membranes, normal sclera with reactive pupils, Neck: No JVD, no cervical adenopathy. The pain that she complains about at the base of the C-spine is not reproducible with palpation or movement. Respiratory: Lungs are clear to auscultation, scattered wheezing clears with deep breathing. Full and symmetrical air movement Cardiac: Regular rate and rhythm no murmurs no bruits Abdomen: Soft, nontender, good bowel tones, no flank pain Skin: Flushed but not diaphoretic, dry skin Neurologic: Grossly neurologically intact with no obvious asymmetries or abnormalities Extremities: No trauma, well perfused, no lower extremity edema Psych: Cooperative, appropriate insight and affect Course Orders Ordered: ED Orders 10/16/23 08:46 XR chest 1V Stat EKG-12 Lead Stat 10/16/23 08:50 Complete Blood Count AUTO DIFF Stat Comprehensive Metabolic Panel Stat Lipase Stat Magnesium Stat PTT Partial Thromboplastin Watson Stat Prothrombin Time INR Stat Troponin & CK Cardiac Panel Stat 10/16/23 11:02 Trop I [Troponin I] Stat Discontinued Medications Aspirin (Aspirin 81 Mg Chew Tab) 324 mg PO NOW ONE Stop: 10/16/23 09:27 Last Admin: 10/16/23 09:31 Dose: 324 mg Documented By: REYMUNDO Nitroglycerin (Nitroglycerin 0.4 Mg Sl Tab) 0.4 mg SL [id number] PRN PRN Reason: Chest Pain Last Admin: 10/16/23 10:12 Dose: 0.4 mg Documented By: Admin: 10/16/23 09:46 Dose: 0.4 mg Documented By: Admin: 10/16/23 09:32 Dose: 0.4 mg Documented By: REYMUNDO Vital Signs Vital signs: Vital Signs - 8 hr 10/16/23 08:51 10/16/23 09:32 10/16/23 09:46 Temperature 97.5 F L Pulse Rate 69 66 69 Respiratory Rate 17 Blood Pressure 183/105 H 183/105 H 153/105 H Pulse Oximetry 95 Oxygen Delivery Method Room Air 10/16/23 10:08 10/16/23 10:12 10/16/23 10:30 Temperature Pulse Rate 63 71 Respiratory Rate 19 Blood Pressure 152/98 H 152/98 H 147/94 H Pulse Oximetry 96 Oxygen Delivery Method Medical Decision Making Lab Data 10/16/23 08:50 10/16/23 08:50 Labs: Lab Results 10/16/23 10/16/23 Range/Units 08:50 11:02 WBC 11.4 H (4.5-11.0) X10^3/uL RBC 5.32 H (4.0-5.2) X10^6/uL Hgb 16.5 H (12.0-16.0) g/dL Hct 48.8 H (36-46) % MCV 91.8 (80-100) fL MCH 31.1 (26-34) PG MCHC 33.9 (30-36) % RDW 13.3 (11.6-14.8) % Plt Count 216 (150-400) X10^3/uL Neut % (Auto) 70.8 (50-75) % Lymph % (Auto) 21.1 L (25-40) % [place] % (Auto) 6.5 (3-14) % Eos % (Auto) 1.1 L (2-4) % Baso % (Auto) 0.5 (0-2) % Neut # (Auto) 8000 H (1590-2924) /uL Lymph # (Auto) 2400 (8192-2986) /uL [place] # (Auto) 700 (0-900) /uL Eos # (Auto) 100 (0-450) /uL Baso # (Auto) 100 (0-100) /uL PT 11.6 (9.4-12.5) SECONDS INR 1.0 (0.9-1.3) APTT 35 (25.1-36.5) SECONDS Sodium 137 (137-145) mmol/L Potassium 3.5 (3.4-5.1) mmol/L Chloride 108 H (98-107) mmol/L Carbon Dioxide 22 (22-32) mmol/L BUN 10 (7-17) mg/dL Creatinine 0.60 (0.52-1.04) mg/dL Estimated GFR > 60 (>60) mL/min BUN/Creatinine Ratio 16.7 (6-22) Glucose 118 H (80-110) mg/dL Calcium 9.8 (8.4-10.2) mg/dL Magnesium 1.8 (1.6-2.3) mg/dL Total Bilirubin 1.4 H (0.2-1.3) mg/dL AST 23 (14-36) IU/L ALT 27 (<35) IU/L Alkaline Phosphatase 79 (38-126) U/L Total Creatine Kinase 41 (30-135) U/L Troponin I < 0.012 < 0.012 (0.01-0.034) ng/mL Total Protein 7.5 (6.3-8.2) g/dL Albumin 4.7 (3.5-5.0) g/dL Globulin 2.8 (1.7-4.1) g/dL Albumin/Globulin Ratio 1.7 (1.0-2.8) Lipase 46 (23-300) U/L MDM Narrative Medical decision making narrative: CC: Elevated blood pressure, tightness at the base of her neck, tachycardic episode 3 days ago Complicating co-morbidities: Hypertension Data collected from: patient, Medical records reviewed: ER visit from May of 2022 shows almost the exact same presentation associated with the rapid heart rate in the pain in the back of neck. Differential considered: Acute coronary syndrome, pneumothorax, paroxysmal atrial fibrillation, dissection, hypertensive urgency, anxiety Exam documented above, pertinent findings include: Fairly benign exam. The neck pain complaint does not have any reproducible musculoskeletal component Lab Test results independently reviewed as above. Pertinent findings: CBC shows slightly elevated white count, no left shift. H and H your moderately elevated, possible dehydration. She smokes marijuana but not enough that I would expect a polycythemia secondary to smoking Chemistries are reassuring. Normal renal function. Normal liver studies, bilirubin is elevated at 1.4 with normal being 1.3 or lower Troponin is undetectable Lipase is reassuring Repeat troponin is unremarkable Independently reviewed EKG: Sinus rhythm at a rate of 73. Normal intervals, normal infarct. No acute ischemic changes Imaging studies independently reviewed: Chest x-ray is unremarkable without cardiomegaly, no mediastinal widening to suggest dissection, no infiltrates Treatments: 4 baby aspirin are given, nitroglycerin sublingually Re-evaluations: Patient is feeling better, blood pressure remains elevated. In asking her about the ER visit May of 2022 with similar findings, does not appear that she had outpatient stress testing or cardiac follow up. Recommend that this will follow up from this visit today Discussion: 63-year-old woman presents complaining of high blood pressure. She describes an episode of tachycardia greater than 72 hours ago. She currently is on metoprolol 25 mg daily. She complains of some posterior neck tightness that does not improve with nitroglycerin, her blood pressure also comes down to 147/94 after the nitroglycerin. We discussed the need for outpatient follow up at this time with negative EKG, negative troponin I believe that discharge home is safe. I am going to have her start 5 mg of amlodipine in the have given her a prescription for this. I have also recommended that she follow up with her primary care physician, I think that outpatient nuclear medicine stress testing is going to be appropriate to help further risk stratify her cardiac issues. At some point she continues to have palpitation she may benefit from Zio patch testing however it sounds like she has not having episodes frequently enough it actually is going to prove beneficial. Patient understands the need to check blood pressures, to add a new medication, to follow up with her primary care doctor and the recommendation for outpatient cardiac stress testing. She also understands that should you have another episode of tachycardia, increasing chest pain, shortness for breath or other findings concerning for heart attack or stroke she needs to come to the emergency department at that time. Questions are answered and she is safe for discharge Discharge Plan Departure Patient Disposition: Home Clinical Impression: Heart palpitations Hypertension Qualifiers: Hypertension type: primary hypertension Qualified Code(s): I10 - Essential (primary) hypertension Instructions: DI for High Blood Pressure, DI for Chest Pain Activity Restrictions/Additional Instructions: Thank you for coming in today Your workup today does not show evidence of an acute heart attack or heart failure. Your blood work was reassuring Your blood pressure has remained elevated through your emergency department stay. It did come down slightly with the sublingual nitroglycerin but has drifted back up again to. Please continue your metoprolol and tooth that I am going to add 5 mg of amlodipine. Please begin that prescription tomorrow Going to ask you to call and schedule an appointment with your primary care physician. I think that outpatient stress testing is going to be an important part of your continued follow up. If you have another episode with rapid heart rate, shortness for breath, sweating or chest pain you need to be seen at that time so that we can best evaluate you Prescriptions: New amlodipine 5 mg tablet 5 mg PO DAILY Qty: 30 0RF No Action triamcinolone acetonide 0.5 % ointment 1 applic topical TID Qty: 15 1RF metoprolol succinate 25 mg tablet extended release 24 hr See Rx Instructions .ROUTE .COMPLEX Qty: 90 0RF Dose Instruction: take 1 tablet (25 mg) orally daily Rx Instructions: take 1 tablet (25 mg) orally daily (DME) Blood Pressure Cuff Misc See Rx Instructions .Route Qty: 1 0RF Rx Instructions: As directed Aspirin See Rx Instructions .ROUTE .COMPLEX Rx Instructions: Takw 81mg daily; clobetasol 0.05 % ointment 1 applic topical QAM AND QPM Qty: 15 2RF Rx Instructions: Apply to affected fingers/hands twice daily x2 weeks Referrals: Gisel Parr ARNP [Primary Care Provider] - Stand Alone Forms: Patient Portal/API
[2023-10-16 09:15] LABS: Alanine Aminotransferase 27 IU/L (<35); Albumin 4.7 g/dL (3.5-5.0); Albumin Globulin Ratio 1.7 (1.0-2.8); Alkaline Phosphatase 79 U/L (38-126); Aspartate Aminotransferase 23 IU/L (14-36); BUN Creatinine Ratio 16.7 (6-22); Bilirubin Total 1.4 mg/dL (0.2-1.3); Blood Urea Nitrogen 10 mg/dL (7-17); Calcium 9.8 mg/dL (8.4-10.2); Carbon Dioxide 22 mmol/L (22-32); Chloride 108 mmol/L (98-107); Creatine Kinase 41 U/L (30-135); Estimated Glomerular Filt Rate > 60 mL/min (>60); Globulin 2.8 g/dL (1.7-4.1); Glucose 118 mg/dL (80-110); HEMOLYSIS 25 (0-50); Lipase 46 U/L (23-300); Magnesium 1.8 mg/dL (1.6-2.3); Potassium 3.5 mmol/L (3.4-5.1); Sodium 137 mmol/L (137-145); Total Protein 7.5 g/dL (6.3-8.2)
[2023-10-16 09:26] LABS: Troponin I < 0.012 ng/mL (0.01-0.034)
[2023-10-16] MEDS: ASPIRIN 81 MG CHEW TAB 324 MG PO (09:31)
[2023-10-16] MEDS: NITROGLYCERIN 0.4 MG SL TAB SL ×3 (09:32→10:12)
[2023-10-16 11:37] LABS: Troponin I < 0.012 ng/mL (0.01-0.034)
[2023-10-16] MEDS: AMLODIPINE 5 MG TABLET 10 MG PO (11:53)
== END 2023-10-16 12:02 | disposition home or self-care (01) ==
PROVIDERS: Emergency Provider Emergency Medicine; PCP Nurse Practitioner
DX: I10 Essential (primary) hypertension (principal); R00.2 Palpitations; R07.9 Chest pain, unspecified; M54.2 Cervicalgia
CPT/HCPCS: 36415; 71045; 80053; 82550; 83690; 83735; 84484; 85025; 85610; 85730; 93005; 99284

== ENCOUNTER → 2023-11-06 07:50 | Outpatient (CLI) | payer OTHER, SELFPAY ==
--- NOTE | 2023-11-06 07:52 | DI.ECHO.S_ITS ---
[facility] +---------+ : : [address] : : : : [id number] : : : : Phone: [phone]+ Echocardiogram Report + + :Name: FRANNY ROJAS Study Date: 11/06/2023 Height: 69 in : :[facility] ReadingLocation: Weight: 170 lb : : Gender: Female BSA: 1.9 m2 : :: 1960 Age: 63 yrs BP: 133/91 mmHg: :Reason For Study: PALPITATIONS, HYPERTENSION : :Ordering Physician: COREEN, : :ADRY Performed By: Cheryl Moise : :Referring: ADRY ANGELA : + + Interpretation Summary The left ventricle is normal in size and wall thickness. The left ventricular ejection fraction is normal. The ejection fraction is estimated to be 55-60%. The right ventricle is normal in size and function. No significant valvular pathology seen. The IVC is of normal diameter and collapses greater than 50% with a sniff. This suggests a low right atrial pressure of 3 mm Hg. Procedure: A two-dimensional transthoracic echocardiogram with color flow and Doppler was performed. The study quality was technically adequate. There is no prior echocardiogram noted for this patient. The patient was in sinus rhythm with heart rates between 52-65 bpm during the exam. Left Ventricle: The left ventricle is normal in size and wall thickness. There is no thrombus. The ejection fraction is estimated to be 55-60%. The left ventricular ejection fraction is normal. There are no focal wall motion abnormalities. Diastolic parameters suggest a relaxation abnormality of the left ventricle, consistent with probable normal filling pressures. Right Ventricle: The right ventricle is normal in size and function. Atria: The left atrial size is normal. Right atrial size is normal. There is no Doppler evidence for an interatrial shunt. Mitral Valve: The mitral valve is normal in structure and function. There is trace mitral regurgitation. Aortic Valve: The aortic valve is trileaflet. The aortic valve opens well. There is no aortic valve stenosis. No aortic regurgitation is present. Tricuspid Valve: The tricuspid valve is normal in structure and function. There is trace tricuspid regurgitation. Pulmonary artery pressures cannot be estimated because of the lack of a measurable TR jet velocity. Pulmonic Valve: The pulmonic valve leaflets are thin and pliable; valve motion is normal. There is trace pulmonic regurgitation. Great Vessels: The aortic root is normal size. The dimensions of the ascending aorta are normal. The IVC is of normal diameter and collapses greater than 50% with a sniff. This suggests a low right atrial pressure of 3 mm Hg. Pericardium/ Pleura There is no pericardial effusion. There is no pleural effusion. MMode/2D Measurements & Calculations LVIDd: 5.4 cm LVOT diam: 2.2 cm LVIDs: 3.4 cm Ao root diam: 3.4 cm FS: 35.7 % asc Aorta Diam: 3.4 cm EPSS: 0.79 cm Ao Arch Diam (Prox Trans): 2.8 cm IVSd: 0.72 cm LVPWd: 0.68 cm LV persaud. diameter/BSA (cm/m^2): 2.8 LV sys. diameter/BSA (cm/m^2): 1.8 LA A2 area: 18.9 cm2 RA long axis: 4.8 cm LA A4 area: 14.9 cm2 RA area: 14.3 cm2 LA length (vol): 4.9 cm RA vol: 35.8 ml LA vol: 48.6 ml RA : 18.6 ml/m2 LA vol index: 25.2 ml/m2 IVC diam: 1.3 cm RVD1 (basal): 3.0 cm RVD2 (mid): 2.8 cm TAPSE: 2.1 cm Doppler Measurements & Calculations Ao V2 max: 108.2 cm/sec LVOT Max Joel: 92.3 cm/sec Ao V2 mean: 80.3 cm/sec LV V1 max P.4 mmHg Ao max P.7 mmHg LV V1 VTI: 21.5 cm Ao mean P.8 mmHg MELANIE(I,D): 3.1 cm2 Ao V2 VTI: 25.4 cm MELANIE(V,D): 3.1 cm2 sev ratio: 0.85 MELANIE indexed to BSA (cm^2/m^2): 1.6 MV E max joel: 64.4 cm/sec PA V2 max: 86.1 cm/sec MV A max joel: 80.0 cm/sec PA V2 mean: 66.4 cm/sec MV E/A: 0.80 PA mean P.9 mmHg Med Peak E' Joel: 6.8 cm/sec PA pr(Accel): 44.7 mmHg E/E' med: 9.5 Lat Peak E' Joel: 9.5 cm/sec E/E' lat: 6.8 E/e' average: 8.1 MV dec time: 0.29 sec SV(LVOT): 79.4 ml Reading Physician:05:27 PM
[2023-11-06 09:00] LABS: Add Manual Diff / Slide Review NO; Basophils Absolute Auto 100 /uL (0-100); Basophils Percent Auto 0.9 % (0-2); Eosinophils Absolute Auto 200 /uL (0-450); Hematocrit 44.4 % (36-46); Lymphocytes Absolute Auto 2100 /uL (1100-4500); Lymphocytes Percent Auto 25.4 % (25-40); Mean Corpuscular HGB Conc 33.8 % (30-36); Mean Corpuscular Volume 91.9 fL (80-100); Monocytes Absolute Auto 600 /uL (0-900); Monocytes Percent Auto 7.7 % (3-14); Neutrophils Absolute Auto 5200 /uL (1500-7000); Platelet Count 210 X10^3/uL (150-400); Red Blood Cell Count 4.83 X10^6/uL (4.0-5.2); Red Cell Distribution Width 13.4 % (11.6-14.8); White Blood Cell Count 8.1 X10^3/uL (4.5-11.0)
[2023-11-06 09:54] LABS: Alanine Aminotransferase 19 IU/L (<35); Albumin 4.2 g/dL (3.5-5.0); Albumin Globulin Ratio 1.6 (1.0-2.8); Alkaline Phosphatase 65 U/L (38-126); Aspartate Aminotransferase 22 IU/L (14-36); BUN Creatinine Ratio 21.5 (6-22); Bilirubin Total 0.7 mg/dL (0.2-1.3); Blood Urea Nitrogen 14 mg/dL (7-17); Calcium 9.5 mg/dL (8.4-10.2); Carbon Dioxide 27 mmol/L (22-32); Chloride 108 mmol/L (98-107); Cholesterol 249 mg/dL (140-199); Estimated Glomerular Filt Rate > 60 mL/min (>60); Globulin 2.6 g/dL (1.7-4.1); Glucose 113 mg/dL (80-110); HDL Cholesterol 75 mg/dL (40-60); HEMOLYSIS < 15 (0-50); LDL Cholesterol Calculated 146 mg/dL (<100); Potassium 4.1 mmol/L (3.4-5.1); Sodium 139 mmol/L (137-145); Total Protein 6.8 g/dL (6.3-8.2); Triglycerides 141 mg/dL (35-150)
[2023-11-06 11:08] LABS: Creatinine Urine Random 20.7 mg/dL
[2023-11-06 11:42] LABS: Microalbumin Urine Random < 0.6 mg/dL (0-1.6)
[2023-11-07 05:37] LABS: Free T3, Triiodothyronine Free 4.11 pg/mL (2.77-5.27); Free T4, Direct Thyroxine 1.07 ng/dL (0.78-2.19)
[2023-11-07 05:51] LABS: Thyroid Stimulating Hormone 3.36 uIU/mL (0.47-4.68)
== END ==
LOC: ECHO 07:51
PROVIDERS: PCP Nurse Practitioner; Referring Provider Nurse Practitioner; Visit Provider Nurse Practitioner
DX: R00.2 Palpitations (principal); I10 Essential (primary) hypertension; D72.829 Elevated white blood cell count, unspecified; R71.8 Other abnormality of red blood cells; E78.2 Mixed hyperlipidemia; Z79.899 Other long term (current) drug therapy
CPT/HCPCS: 36415; 80053; 80061; 82043; 82570; 84439; 84443; 84481; 85025; 93306

== ENCOUNTER → 2023-11-26 09:41 | Outpatient (CLI) | payer OTHER, SELFPAY | PROVIDERS: PCP Nurse Practitioner; Referring Provider Nurse Practitioner; Visit Provider Nurse Practitioner | DX: R00.2 Palpitations (principal) | CPT/HCPCS: 93242 ==

== ENCOUNTER → 2024-03-25 08:16 | Outpatient (CLI) | payer OTHER, SELFPAY ==
[2024-03-25 10:06] LABS: Add Manual Diff / Slide Review NO; Basophils Absolute Auto 100 /uL (0-100); Eosinophils Absolute Auto 100 /uL (0-450); Eosinophils Percent Auto 2.1 % (2-4); Hematocrit 43.7 % (36-46); Hemoglobin 14.7 g/dL (12.0-16.0); Lymphocytes Absolute Auto 1000 /uL (1100-4500); Lymphocytes Percent Auto 16.9 % (25-40); Mean Corpuscular HGB Conc 33.6 % (30-36); Mean Corpuscular Hemoglobin 30.7 PG (26-34); Mean Corpuscular Volume 91.6 fL (80-100); Monocytes Absolute Auto 600 /uL (0-900); Monocytes Percent Auto 10.5 % (3-14); Neutrophils Absolute Auto 4200 /uL (1500-7000); Neutrophils Percent Auto 69.5 % (50-75); Platelet Count 166 X10^3/uL (150-400); Red Blood Cell Count 4.77 X10^6/uL (4.0-5.2); Red Cell Distribution Width 13.3 % (11.6-14.8)
[2024-03-25 10:42] LABS: Alanine Aminotransferase 16 IU/L (<35); Albumin 4.3 g/dL (3.5-5.0); Albumin Globulin Ratio 2.2 (1.0-2.8); Alkaline Phosphatase 71 U/L (38-126); Aspartate Aminotransferase 22 IU/L (14-36); BUN Creatinine Ratio 25.4 (6-22); Bilirubin Total 0.7 mg/dL (0.2-1.3); Blood Urea Nitrogen 18 mg/dL (7-17); Calcium 9.4 mg/dL (8.4-10.2); Carbon Dioxide 27 mmol/L (22-32); Chloride 103 mmol/L (98-107); Estimated Glomerular Filt Rate > 60 mL/min (>60); Glucose 90 mg/dL (80-110); HEMOLYSIS < 15 (0-50); Potassium 4.3 mmol/L (3.4-5.1); Sodium 137 mmol/L (137-145); Total Protein 6.3 g/dL (6.3-8.2)
[2024-03-25 10:51] LABS: Free T3, Triiodothyronine Free 3.34 pg/mL (2.77-5.27); Free T4, Direct Thyroxine 0.92 ng/dL (0.78-2.19)
[2024-03-25 10:59] LABS: Appearance Urine UA CLEAR; Bilirubin Urine UA NEGATIVE (NEGATIVE); Color Urine UA YELLOW; Glucose Urine UA NEGATIVE (Negative); Ketones Urine UA NEGATIVE (NEGATIVE); Leukocyte Esterase Urine UA NEGATIVE (NEGATIVE); Nitrite Urine UA NEGATIVE (Negative); Occult Blood Urine UA NEGATIVE (Negative); Protein Urine UA NEGATIVE (Negative); Specific Gravity Urine UA <=1.005 (1.000-1.035); Urobilinogen Urine UA 0.2 E.U./dL (0.2)
[2024-03-25 11:04] LABS: Thyroid Stimulating Hormone 2.31 uIU/mL (0.47-4.68)
[2024-03-25 11:08] LABS: Urine Volume 10mL (spun)
[2024-03-25 11:09] LABS: Bacteria Urine None Seen; Culture Indicated Urine Cult Not Indicated; RBC Urine None Seen (0-5/HPF); Squamous Epithelial Cell Urine None Seen (0-5/HPF); WBC Urine None Seen (0-5/HPF)
== END ==
PROVIDERS: PCP Nurse Practitioner; Referring Provider Nurse Practitioner; Visit Provider Nurse Practitioner
DX: I10 Essential (primary) hypertension (principal); F41.9 Anxiety disorder, unspecified; F10.20 Alcohol dependence, uncomplicated; F10.11 Alcohol abuse, in remission; Z71.41 Alcohol abuse counseling and surveillance of alcoholic
CPT/HCPCS: 36415; 80053; 81001; 84439; 84443; 84481; 85025

== ENCOUNTER → 2024-04-01 15:10 | Outpatient (CLI) | payer OTHER, SELFPAY ==
--- NOTE | 2024-04-01 15:30 | DI.NM.S_ITS ---
PROCEDURE: NM EXERCISE TREADMILL NON NUC COMPARISON: None. INDICATIONS: heart palpitations FINDINGS: Patient exercised per the standard Rick protocol. Total exercise time was 5 minutes 21 seconds. Test was terminated secondary to fatigue. Maximum heart rate obtained is 188 bpm which is iron 21% of max impacted heart rate. Maximum blood pressure was 210/106. Double product is 32,712. YANA +15%. 7.0 METS. No ischemic changes present. Patient developed paroxysmal supraventricular tachycardia with a short RP variant at 4 minutes and 45 seconds in the stress phase. This spontaneously converted to sinus tachycardia at 5 minutes and 4 seconds in the stress phase. Frequent PACs and PVCs noted at peak stress. No chest pains voiced. Exaggerated heart rate and blood pressure response to exercise. IMPRESSION: 1. Negative exercise treadmill stress test in terms of ischemia. 2. Below average exercise tolerance. 3. Exercise-induced paroxysmal supraventricular tachycardia. 4. Hypertensive response to exercise. Dictated by: Raymundo Yang M.D. on 04/01/2024 at 17:03 Approved by: Raymundo Yang M.D. on 04/01/2024 at 17:06
== END ==
PROVIDERS: PCP Nurse Practitioner; Referring Provider Nurse Practitioner; Visit Provider Nurse Practitioner
DX: I47.19 Other supraventricular tachycardia (principal); I10 Essential (primary) hypertension
CPT/HCPCS: 93017

== ENCOUNTER → 2024-06-15 08:12 | Outpatient (CLI) | payer OTHER, SELFPAY ==
[2024-06-15 09:05] LABS: Add Manual Diff / Slide Review NO; Basophils Absolute Auto 100 /uL (0-100); Basophils Percent Auto 0.9 % (0-2); Eosinophils Absolute Auto 100 /uL (0-450); Eosinophils Percent Auto 2.1 % (2-4); Hematocrit 43.4 % (36-46); Hemoglobin 14.5 g/dL (12.0-16.0); Lymphocytes Absolute Auto 1800 /uL (1100-4500); Lymphocytes Percent Auto 27.9 % (25-40); Mean Corpuscular HGB Conc 33.4 % (30-36); Mean Corpuscular Hemoglobin 30.4 PG (26-34); Mean Corpuscular Volume 91.1 fL (80-100); Monocytes Absolute Auto 500 /uL (0-900); Monocytes Percent Auto 7.2 % (3-14); Neutrophils Absolute Auto 3900 /uL (1500-7000); Neutrophils Percent Auto 61.9 % (50-75); Platelet Count 191 X10^3/uL (150-400); Red Blood Cell Count 4.77 X10^6/uL (4.0-5.2); Red Cell Distribution Width 13.3 % (11.6-14.8); White Blood Cell Count 6.3 X10^3/uL (4.5-11.0)
[2024-06-15 09:28] LABS: Blood Urea Nitrogen 15 mg/dL (7-17); Calcium 9.6 mg/dL (8.4-10.2); Carbon Dioxide 30 mmol/L (22-32); Chloride 104 mmol/L (98-107); Estimated Glomerular Filt Rate > 60 mL/min (>60); Glucose 96 mg/dL (80-110); HEMOLYSIS < 15 (0-50); Potassium 4.1 mmol/L (3.4-5.1); Sodium 137 mmol/L (137-145)
== END ==
PROVIDERS: PCP Family Medicine; Referring Provider Internal Medicine; Visit Provider Internal Medicine
DX: I47.10 Supraventricular tachycardia, unspecified (principal)
CPT/HCPCS: 36415; 80048; 85025

== ENCOUNTER 2024-07-13 14:27 | Emergency (ER) | payer OTHER, SELFPAY ==
[2024-07-13] VITALS (9 sets, daily range): BP systolic 122–142; BP diastolic 81–104; PULSE 82–170; RESP 12–25; TEMP 36.2; O2SAT 94–98; BMI 25.5
--- NOTE | 2024-07-13 14:31 | DI.RAD.S_ITS ---
PROCEDURE: XR CHEST 1V INDICATIONS: chest pain TECHNIQUE: One view of the chest was acquired. COMPARISON: [facility], CR, XR CHEST 1V, 10/16/2023, 9:01. FINDINGS: Surgical changes and devices: None. Lungs and pleura: Lungs are clear. No pleural effusions or pneumothorax. Mediastinum: Mediastinal contours appear normal. Heart size is normal. Bones and chest wall: No suspicious bony lesions. Overlying soft tissues appear unremarkable. IMPRESSION: No acute pulmonary process. Dictated by: China Alvarenga M.D. on 07/13/2024 at 16:06 Approved by: China Alvarenga M.D. on 07/13/2024 at 16:08
--- NOTE | 2024-07-13 14:39 | EKG_ITS ---
[facility] [address] [place] [address] Test Date: 2024-07-13 Pat Name: Glenys Walters Department: Room: Gender: Female Information Technology Security Analyst: MARISA : 1960 Requested By: Order Number: [id number] Reading MD: Eloy Rascon Measurements Intervals [place] Rate: 160 P: [place]: QRS: 68 QRSD: 92 T: -69 QT: 280 QTc: 456 Interpretive Statements Critical Test Result: High HR Supraventricular tachycardia Marked ST abnormality, possible inferior subendocardial injury Electronically Signed On 07-13-2024 19:43:49 PST by Eloy Rascon
[2024-07-13 14:57] LABS: Add Manual Diff / Slide Review NO; Basophils Absolute Auto 100 /uL (0-100); Basophils Percent Auto 1.1 % (0-2); Eosinophils Absolute Auto 200 /uL (0-450); Eosinophils Percent Auto 1.7 % (2-4); Hematocrit 44.3 % (36-46); Hemoglobin 15.1 g/dL (12.0-16.0); Lymphocytes Absolute Auto 2900 /uL (1100-4500); Lymphocytes Percent Auto 26.7 % (25-40); Mean Corpuscular HGB Conc 34.1 % (30-36); Mean Corpuscular Hemoglobin 30.8 PG (26-34); Monocytes Absolute Auto 1000 /uL (0-900); Neutrophils Absolute Auto 6600 /uL (1500-7000); Neutrophils Percent Auto 61.5 % (50-75); Platelet Count 245 X10^3/uL (150-400); Red Blood Cell Count 4.92 X10^6/uL (4.0-5.2); Red Cell Distribution Width 13.3 % (11.6-14.8); White Blood Cell Count 10.8 X10^3/uL (4.5-11.0)
--- NOTE | 2024-07-13 15:01 | ED.ARRPALP ---
HPI - Arrhythmia/Palpitations General Chief Complaint: Arrhythmia/Palpitations Stated Complaint: heart racing 1hr Time Seen by Provider: 07/13/24 14:55 Source: patient Mode of arrival: Family Vehicle History of Present Illness HPI narrative: Patient here with . Complains of palpitation started at 1:00 p.m. today. Patient has history SVT. Had ablation by Dr. Baxter June 17, 2024 at [facility]. Is on metoprolol 25 mg daily. Denies any chest pain. Related Data Home Medications Medication Instructions Recorded Confirmed Aspirin See Rx Instructions .Route .COMPLEX 06/24/22 05/24/24 Previous Rx's Medication Instructions Recorded miscellaneous medical supply #1 ea 09/17/21 (Blood Pressure Cuff) metoprolol succinate 25 mg See Rx Instructions .Route 10/22/23 tablet,extended release 24 hr .COMPLEX #180 tabs bupropion HCl 150 mg 24 hr tablet, 150 mg PO QAM #90 tabs 03/30/24 extended release hydroxyzine HCl 50 mg tablet 25 mg (1/2 x 50 mg) PO BID PRN 03/30/24 anxiety/panic #90 tabs amlodipine 5 mg tablet 5 mg PO DAILY #90 tabs 03/31/24 Allergies Allergy/AdvReac Type Severity Reaction Status Date / Time No Known Drug Allergies Allergy Verified 05/24/24 14:41 Review of Systems Review of Systems Narrative: GENERAL: Negative chills, fatigue, malaise, fever, sweats. HEENT: Negative sinus pain, ear pain, sore throat RESPIRATORY: Negative dyspnea, cough CARDIOVASCULAR: Negative chest pain, positive palpitations GASTROINTESTINAL: Negative nausea, vomiting, abdominal pain : Negative dysuria, frequency, hematuria MUSCULOSKELETAL: Negative muscle or bony pain SKIN: Negative rash, skin lesions NEUROLOGIC: Negative weakness, numbness ROS Unobtainable: All systems reviewed & are unremarkable except as noted in HPI and below Patient History Medical History (Updated 07/13/24 @ 15:59 by Harpal Parsons MD) SVT (supraventricular tachycardia) Ageusia Traumatic anosmia Alcohol dependence, daily use Anxiety Mixed hyperlipidemia High risk HPV infection Hypertension, essential Closed head injury Diverticula of colon (11/20/11) Psoriasis (07/14/15) Polyp of colon (07/14/15) Surgical History Status post colonoscopy (10/15/13) Status post tubal ligation Social History household members: spouse Smoking Status: Former smoker Smoking Status: Former smoker tobacco type: cigarettes alcohol intake frequency: 3 or more drinks per day Exam Narrative Exam Narrative: GENERAL: in no distress, not toxic not dyspneic HEAD: Normocephalic. EYES: Pupils equal round ENT: Mucous membranes moist. NECK: Trachea midline. CARDIOVASCULAR: Regular rate and rhythm, tachycardic RESPIRATORY: Clear to auscultation. Breath sounds equal bilaterally. No wheezes, rales, or rhonchi. GASTROINTESTINAL: Abdomen soft, non-tender EXTREMITIES: No gross deformities. BACK: No flank tenderness. NEURO: AOx4. SKIN: Warm and dry PSYCH: Not anxious, is cooperative Initial Vital Signs Initial Vital Signs: Vital Signs Temperature 97.1 F L 07/13/24 14:32 Pulse Rate 170 H 07/13/24 14:32 Respiratory Rate 19 07/13/24 14:32 Blood Pressure 126/104 H 07/13/24 14:32 Pulse Oximetry 98 07/13/24 14:32 Oxygen Delivery Method Room Air 07/13/24 14:32 Course Orders Ordered: Discontinued Medications Adenosine (Adenosine 6 Mg/2 Ml Vial) 6 mg IV NOW ONE Stop: 07/13/24 15:00 Last Admin: 07/13/24 15:43 Dose: 6 mg Documented By: JACKY Aspirin (Aspirin 81 Mg Chew Tab) 324 mg PO NOW ONE Stop: 07/13/24 14:32 Last Admin: 07/13/24 16:02 Dose: Not Given Documented By: JACKY Vital Signs Vital signs: Vital Signs - 8 hr 07/13/24 14:32 07/13/24 14:49 07/13/24 14:52 Temperature 97.1 F L Pulse Rate 170 H 163 H Respiratory Rate 19 Blood Pressure 126/104 H 142/98 H Pulse Oximetry 98 97 Oxygen Delivery Method Room Air 07/13/24 14:52 07/13/24 15:00 07/13/24 15:00 Temperature Pulse Rate 151 H 152 H Respiratory Rate 18 22 Blood Pressure 137/81 Pulse Oximetry 97 96 Oxygen Delivery Method 07/13/24 15:10 07/13/24 15:10 07/13/24 15:20 Temperature Pulse Rate 153 H Respiratory Rate 14 Blood Pressure 123/96 H 135/95 H Pulse Oximetry 97 Oxygen Delivery Method 07/13/24 15:20 07/13/24 15:30 07/13/24 15:30 Temperature Pulse Rate 159 H 158 H Respiratory Rate 25 H 12 Blood Pressure 122/92 H Pulse Oximetry 95 97 Oxygen Delivery Method 07/13/24 15:40 07/13/24 15:40 07/13/24 15:44 Temperature Pulse Rate 160 H Respiratory Rate 23 Blood Pressure 123/92 H 126/92 H Pulse Oximetry 94 Oxygen Delivery Method 07/13/24 15:44 Temperature Pulse Rate 82 Respiratory Rate 23 Blood Pressure Pulse Oximetry 96 Oxygen Delivery Method MDM - Arrhythmia/Palpitations Lab Data 07/13/24 14:45 07/13/24 14:45 Labs: Lab Results 07/13/24 Range/Units 14:45 WBC 10.8 (4.5-11.0) X10^3/uL RBC 4.92 (4.0-5.2) X10^6/uL Hgb 15.1 (12.0-16.0) g/dL Hct 44.3 (36-46) % MCV 90.0 (80-100) fL MCH 30.8 (26-34) PG MCHC 34.1 (30-36) % RDW 13.3 (11.6-14.8) % Plt Count 245 (150-400) X10^3/uL Neut % (Auto) 61.5 (50-75) % Lymph % (Auto) 26.7 (25-40) % [place] % (Auto) 9.0 (3-14) % Eos % (Auto) 1.7 L (2-4) % Baso % (Auto) 1.1 (0-2) % Neut # (Auto) 6600 (1608-4259) /uL Lymph # (Auto) 2900 (1855-8178) /uL [place] # (Auto) 1000 H (0-900) /uL Eos # (Auto) 200 (0-450) /uL Baso # (Auto) 100 (0-100) /uL PT 11.6 (9.4-12.5) SECONDS INR 1.0 (0.9-1.3) APTT 37 H (25.1-36.5) SECONDS Sodium 137 (137-145) mmol/L Potassium 4.0 (3.4-5.1) mmol/L Chloride 107 (98-107) mmol/L Carbon Dioxide 24 (22-32) mmol/L BUN 16 (7-17) mg/dL Creatinine 0.74 (0.52-1.04) mg/dL Estimated GFR > 60 (>60) mL/min BUN/Creatinine Ratio 21.6 (6-22) Glucose 117 H (80-110) mg/dL Calcium 9.7 (8.4-10.2) mg/dL Magnesium 1.9 (1.6-2.3) mg/dL Total Bilirubin 0.6 (0.2-1.3) mg/dL AST 29 (14-36) IU/L ALT 29 (<35) IU/L Alkaline Phosphatase 75 (38-126) U/L Total Creatine Kinase 57 (30-135) U/L Troponin I < 0.012 (0.01-0.034) ng/mL NT-Pro-B Natriuret Pep 568 H (<125) pg/mL Total Protein 7.0 (6.3-8.2) g/dL Albumin 4.4 (3.5-5.0) g/dL Globulin 2.6 (1.7-4.1) g/dL Albumin/Globulin Ratio 1.7 (1.0-2.8) Lipase 39 (23-300) U/L [facility] Narrative Medical decision making narrative: Patient here with . Complains of palpitation started at 1:00 p.m. today. Patient has history SVT. Had ablation by Dr. Baxter June 17, 2024 at [facility]. Is on metoprolol 25 mg daily. Denies any chest pain. After history and exam CBC CMP troponin EKG Adenocard, cardiology consult chest x-ray [facility] Medical records reviewed: June 17, 2024 ablation [facility] Differential considered: Includes but not limited to SVT a flutter AFib Lab Test results independently reviewed as above. Pertinent findings: WBC 10.8 hemoglobin 15.1 sodium 137 potassium 4.0 BUN 16 creatinine 0.7 glucose 117 troponin less than 0.012 BNP 568 Independently reviewed EKG rate 160 SVT repeat EKG after 6 mg of Adenocard normal sinus rhythm rate 70 Imaging studies independently reviewed: Chest x-ray no acute finding Consultations: 3:00 p.m.. Spoke with Cardiology, Dr. Allen, he has reviewed EKG. Proceed with Adenocard 6 mg, 12 mg, 12 mg, if needed 18 mg. Treatments: Adenocard Re-evaluations: 4:01 p.m.. Patient tolerated Adenocard 6 mg very well. Back in sinus rhythm rate of 70. Return precautions reviewed with patient. Patient understands will need to call her manufacturer representative tomorrow whether to resume metoprolol 25 mg twice a day instead of once a day. Discussion: Appropriate for discharge home, labs are reassuring. Patient responded very well with Adenocard. Cardiology service was contacted. She desires discharge home. Diagnosis: SVT Discharge Plan Departure Patient Disposition: Home Clinical Impression: SVT (supraventricular tachycardia) Instructions: DI for Paroxysmal Supraventricular Tachycardia Activity Restrictions/Additional Instructions: I am glad you are feeling better. Your heart rate is back in normal sinus rhythm. You may need to resume metoprolol 25 mg twice a day however please call your cardiology office provider tomorrow to confirm. Return if worse if any questions or concerns. Prescriptions: No Action hydroxyzine HCl 50 mg tablet 25 mg PO BID PRN (Reason: anxiety/panic) Qty: 90 2RF Rx Instructions: Take 1/2 to 1 tab by mouth twice daily as needed for anxiety/panic bupropion HCl 150 mg tablet extended release 24 hr 150 mg PO QAM Qty: 90 3RF amlodipine 5 mg tablet 5 mg PO DAILY Qty: 90 3RF (DME) Blood Pressure Cuff Misc See Rx Instructions .Route Qty: 1 0RF Rx Instructions: As directed Aspirin See Rx Instructions .ROUTE .COMPLEX Rx Instructions: Takw 81mg daily; metoprolol succinate 25 mg tablet extended release 24 hr See Rx Instructions .ROUTE .COMPLEX Qty: 180 3RF Dose Instruction: take 1 tablet (25 mg) orally daily Rx Instructions: take 1 tablet (25 mg) orally twice daily Referrals: Bertha Spear MD [Primary Care Provider] - Stand Alone Forms: Patient Portal/API/Survey
[2024-07-13 15:11] LABS: Prothrombin Time 11.6 SECONDS (9.4-12.5)
[2024-07-13 15:13] LABS: PTT Partial Thromboplastin Tim 37 SECONDS (25.1-36.5)
[2024-07-13 15:29] LABS: Alanine Aminotransferase 29 IU/L (<35); Albumin 4.4 g/dL (3.5-5.0); Albumin Globulin Ratio 1.7 (1.0-2.8); Alkaline Phosphatase 75 U/L (38-126); Aspartate Aminotransferase 29 IU/L (14-36); BUN Creatinine Ratio 21.6 (6-22); Bilirubin Total 0.6 mg/dL (0.2-1.3); Blood Urea Nitrogen 16 mg/dL (7-17); Calcium 9.7 mg/dL (8.4-10.2); Carbon Dioxide 24 mmol/L (22-32); Chloride 107 mmol/L (98-107); Creatine Kinase 57 U/L (30-135); Estimated Glomerular Filt Rate > 60 mL/min (>60); Globulin 2.6 g/dL (1.7-4.1); Glucose 117 mg/dL (80-110); HEMOLYSIS 20 (0-50); Lipase 39 U/L (23-300); Magnesium 1.9 mg/dL (1.6-2.3); Sodium 137 mmol/L (137-145)
[2024-07-13 15:40] LABS: NT-proBNP (BNP-Adult 18+) 568 pg/mL (<125); Troponin I < 0.012 ng/mL (0.01-0.034)
[2024-07-13] MEDS: ADENOSINE 6 MG/2 ML VIAL IV (15:43)
--- NOTE | 2024-07-13 15:46 | EKG_ITS ---
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
== END 2024-07-13 16:08 | disposition home or self-care (01) ==
PROVIDERS: Emergency Provider Emergency Medicine; PCP Family Medicine
DX: I47.10 Supraventricular tachycardia, unspecified (principal); R07.9 Chest pain, unspecified
CPT/HCPCS: 36415; 71045; 80053; 82550; 83690; 83735; 83880; 84484; 85025; 85610; 85730; 93005; 96374; 99284; J0153

== ENCOUNTER → 2024-07-24 07:53 | Outpatient (CLI) | payer OTHER, SELFPAY ==
--- NOTE | 2024-07-24 | DI.MG.S_ITS ---
BILATERAL DIGITAL SCREENING MAMMOGRAM 3D/2D WITH CAD: 07/24/2024 CLINICAL: Routine screening. Comparison is made to exams dated: 08/10/2022 mammogram, 05/31/2021 mammogram, and 06/04/2019 mammogram - [facility]. There are scattered areas of fibroglandular density (category b / 25%-50% glandular tissue). Current study was also evaluated with a Computer Aided Detection (CAD) system. No significant masses, calcifications, or other findings are seen in either breast. There has been no significant interval change. IMPRESSION: NEGATIVE There is no mammographic evidence of malignancy. A 1 year screening mammogram is recommended. Based on the Tyrer Cuzick model (a risk assessment model) the patient's lifetime risk is 5.4% and her 10 year risk is 2.6%. According to the ACR, ACS, and NCCN guidelines, an annual breast MRI exam along with mammogram is recommended if the patient's lifetime risk is 20% or greater. This exam was interpreted at Station ID: [id number]. NOTE: For mammograms, a report in lay terms will be sent to the patient. Approximately 15% of breast malignancies will not be visualized mammographically. In the management of a palpable breast mass, a negative mammogram must not discourage biopsy of a clinically suspicious lesion. Electronically Signed By: Brant arguello/marco antonio:07/26/2024 07:27:35 letter sent: Normal Exam ACR BI-RADS Category 1: Negative
== END ==
PROVIDERS: PCP Family Medicine; Referring Provider Family Medicine; Visit Provider Family Medicine
DX: Z12.31 Encounter for screening mammogram for malignant neoplasm of breast (principal)
CPT/HCPCS: 77063; 77067

== ENCOUNTER 2024-12-01 11:36 | Emergency (ER) | payer OTHER, SELFPAY ==
[2024-12-01] VITALS (22 sets, daily range): BP systolic 143–190; BP diastolic 71–97; PULSE 48–61; RESP 13–24; TEMP 36.6–36.7; O2SAT 92–98; BMI 25.5
--- NOTE | 2024-12-01 11:47 | ED_ITS ---
HPI - General Adult General Chief complaint: Chest Pain Stated complaint: Fast heart rate High Blood pressure Time Seen by Provider: 12/01/24 11:46 History of Present Illness HPI narrative: Significant PMHx include: SVT, anxiety, HTN, remote alcohol use, pancreatitis Glenys, a 57-year-old female, presented to the emergency department with complaints of chest tightness that began at 7:30 AM on the day of the visit. The patient reported feeling her heart racing with a rate in the 120s bpm. She experienced associated shortness of breath and described the chest tightness as being in the middle of her chest. The patient took an extra dose of Flecainide at 7:50 AM, after which her heart rate slowed down within half an hour. The chest pain improved by the time she arrived at the ER. She denied any fever, new cough, or congestion. The patient has a history of supraventricular tachycardia (SVT) and underwent an unsuccessful ablation procedure in May of the previous year. She recently had a Zio patch monitoring but has not received the results yet. The patient is scheduled to see a new physician practice manager for a potential ablation procedure. Her past medical history is significant for pancreatitis 40 years ago. Current medications include Flecainide, Metoprolol, and Amlodipine. The patient quit alcohol six months ago, switching to non-alcoholic beer. She uses marijuana and drinks one cup of coffee daily. She denies using energy drinks or smoking cigarettes. The patient reported frequent urination today but denied any pain while urinating, abdominal pain, nausea, vomiting, or diarrhea. She also mentioned experiencing severe dry mouth, which was unusual for her. Related Data Home Medications Medication Instructions Recorded Confirmed flecainide 50 mg tablet 50 mg PO BID 12/01/24 12/01/24 Previous Rx's Medication Instructions Recorded metoprolol succinate 25 mg See Rx Instructions .Route 10/22/23 tablet,extended release 24 hr .COMPLEX #180 tabs bupropion HCl 150 mg 24 hr tablet, 150 mg PO QAM #90 tabs 03/30/24 extended release amlodipine 5 mg tablet 5 mg PO DAILY #90 tabs 10/11/24 Allergies Allergy/AdvReac Type Severity Reaction Status Date / Time No Known Drug Allergies Allergy Verified 12/01/24 12:00 Review of Systems Review of Systems Narrative: All systems reviewed and unremarkable except as noted in the HPI Patient History Medical History (Updated 12/01/24 @ 18:08 by Manolo Bryant MD) SVT (supraventricular tachycardia) Ageusia Traumatic anosmia Alcohol dependence, daily use Anxiety Mixed hyperlipidemia High risk HPV infection Hypertension, essential Closed head injury Diverticula of colon (11/20/11) Psoriasis (07/14/15) Polyp of colon (07/14/15) Surgical History Status post colonoscopy (10/15/13) Status post tubal ligation Social History household members: spouse tobacco type: cigarettes alcohol intake frequency: 3 or more drinks per day Exam Narrative Exam Narrative: VS as noted above Focused physical exam as follows: General: Well developed, well nourished, no acute distress HEENT: pink palpebral conjunctiva, anicteric sclera, DELIA, moist mucous membranes, no JVD, no cervical lymphadenopathy Lungs: no respiratory distress, clear to auscultation without wheezes or crackles; equal breath sounds Heart: normal rate, regular rhythm, no appreciable murmurs Abdomen: soft, nontender, no rebound or rigidity Musculoskeletal: no gross deformities with full ROM in all extremities, no pedal edema Skin: pink, warm; no rashes Neuro: AAOx3, GCS 15, nonfocal exam Psyche: no SI/HI, normal affect Initial Vital Signs Initial Vital Signs: Vital Signs Pulse Oximetry 98 12/01/24 11:50 Scores HEART Score Heart Score history: Slightly Suspicious Heart Score EKG: Normal Heart Score Age: > or = 65 years old Heart Score risk factors: 1-2 risk factors Heart Score troponin: < or = to normal limit Heart Score Total: 3 Course Course Course Narrative: Initial VS noted above. PMHx, PSHx, Medication list, social history reviewed as noted above. Differential diagnosis considered include (but not limited to) the following: cardiac dysrhythmia, ACS, pericarditis, hiatal hernia, GERD, gastritis, gastric ulcer, pancreatitis, cholelithiasis/cystitis, pneumonia, viral resp illness, anxiety, adverse effect/withdrawal from illicit drug/ETOH, electrolyte imbalance, liver or kidney failure, dehydration, symptomatic anemia Pt interviewed and examined. Bedside EKG showed no ST elevation or ectopy. Pt kept on telemetry. Work up initiated. Labs reviewed - unremarkable including initial Troponin, D-dimer, BNP. Will recheck Troponin. No ectopy noted on telemetry. Repeat Troponin normal. No recurrence of symptoms in the ER. Discussed plan of care. Stable for discharge with return precautions. Orders Ordered: Discontinued Medications Aspirin (Aspirin 81 Mg Chew Tab) 324 mg PO NOW ONE Stop: 12/01/24 12:02 Last Admin: 12/01/24 12:54 Dose: Not Given Documented By: DORIE Vital Signs Vital signs: Vital Signs - 8 hr 12/01/24 11:50 12/01/24 11:51 12/01/24 11:51 Temperature Pulse Rate 57 L Respiratory Rate Blood Pressure 175/93 H Pulse Oximetry 98 97 Oxygen Delivery Method 12/01/24 11:54 12/01/24 11:54 12/01/24 11:57 Temperature 98 F Pulse Rate 54 L 57 L Respiratory Rate 17 Blood Pressure 150/84 H 150/84 H Pulse Oximetry 96 97 Oxygen Delivery Method Room Air 12/01/24 12:00 12/01/24 12:01 12/01/24 12:01 Temperature Pulse Rate 59 L 58 L Respiratory Rate 24 17 Blood Pressure 143/71 H Pulse Oximetry 96 95 Oxygen Delivery Method 12/01/24 12:30 12/01/24 12:30 12/01/24 12:31 Temperature Pulse Rate 56 L Respiratory Rate 20 18 Blood Pressure 152/95 H 172/78 H Pulse Oximetry 93 98 Oxygen Delivery Method 12/01/24 13:00 12/01/24 13:00 12/01/24 13:30 Temperature Pulse Rate 53 L Respiratory Rate 20 Blood Pressure 162/89 H 158/96 H Pulse Oximetry 92 Oxygen Delivery Method 12/01/24 13:30 12/01/24 14:00 12/01/24 14:00 Temperature Pulse Rate 53 L 52 L Respiratory Rate 19 18 Blood Pressure 167/94 H Pulse Oximetry 92 93 Oxygen Delivery Method Medical Decision Making Lab Data 12/01/24 12:22 12/01/24 12:22 Labs: Lab Results 12/01/24 12/01/24 Range/Units 12:22 14:57 WBC 7.6 (4.5-11.0) X10^3/uL RBC 4.65 (4.0-5.2) X10^6/uL Hgb 14.1 (12.0-16.0) g/dL Hct 41.7 (36-46) % MCV 89.8 (80-100) fL MCH 30.5 (26-34) PG MCHC 33.9 (30-36) % RDW 13.1 (11.6-14.8) % Plt Count 184 (150-400) X10^3/uL Neut % (Auto) 70.0 (50-75) % Lymph % (Auto) 21.0 L (25-40) % [place] % (Auto) 7.0 (3-14) % Eos % (Auto) 1.4 L (2-4) % Baso % (Auto) 0.6 (0-2) % Neut # (Auto) 5300 (4381-3543) /uL Lymph # (Auto) 1600 (1217-3136) /uL [place] # (Auto) 500 (0-900) /uL Eos # (Auto) 100 (0-450) /uL Baso # (Auto) 0 (0-100) /uL PT 11.7 (9.4-12.5) SECONDS INR 1.0 (0.9-1.3) APTT 37 H (25.1-36.5) SECONDS D-Dimer < 215 (<500) ng/ml Sodium 139 (137-145) mmol/L Potassium 4.0 (3.4-5.1) mmol/L Chloride 109 H (98-107) mmol/L Carbon Dioxide 21 L (22-32) mmol/L BUN 15 (7-17) mg/dL Creatinine 0.62 (0.52-1.04) mg/dL Estimated GFR > 60 (>60) mL/min BUN/Creatinine Ratio 24.2 H (6-22) Glucose 101 H (70-99) mg/dL Lactate 1.1 (0.7-2.1) mmol/L Calcium 9.1 (8.4-10.2) mg/dL Magnesium 1.8 (1.6-2.3) mg/dL Total Bilirubin 0.6 (0.2-1.3) mg/dL AST 22 (14-36) IU/L ALT 18 (<35) IU/L Alkaline Phosphatase 67 (38-126) U/L Total Creatine Kinase 44 (30-135) U/L Troponin I < 0.012 < 0.012 (0.01-0.034) ng/mL NT-Pro-B Natriuret Pep 191 H (<125) pg/mL Total Protein 6.5 (6.3-8.2) g/dL Albumin 4.2 (3.5-5.0) g/dL Globulin 2.3 (1.7-4.1) g/dL Albumin/Globulin Ratio 1.8 (1.0-2.8) Lipase 40 (23-300) U/L Imaging Data Chest x-ray: Attestation: I personally reviewed and interpreted this imaging study as follows: Radiologist's Impression: IMPRESSION: No acute cardiopulmonary abnormality is seen. ECG Data Attestation: I personally reviewed and interpreted this ECG as follows: (1155 - sinus ryan @ 56; no STTW changes; QTc 428) MDM Narrative Medical decision making narrative: HPI, PMHx, PSHx, Medication list, Allergies, ROS and Focused exam were reviewed above. ?Differential diagnosis as noted below. ?Social determinants affecting care considered. ?All of these were taken into consideration warranting above listed work up. ?Consultations as deemed necessary were documented below (if listed). Labs (if ordered and noted) were independently reviewed by me. Imaging studies (if ordered and noted) were independently reviewed by me EKG (if noted) was independently reviewed by me External documents (if reviewed) are documented above Discharge Plan Departure Patient Disposition: Home Clinical Impression: Hypertension, essential, Heart palpitations Chest pain Qualifiers: Chest pain type: unspecified Qualified Code(s): R07.9 - Chest pain, unspecified Activity Restrictions/Additional Instructions: Work up today was generally reassuring and no irregular heart rhythm noted on the heart monitor in the ER. Continue all current medications and follow up with your regular doctor as needed. Return to the ER if with worsening symptoms. Prescriptions: No Action bupropion HCl 150 mg tablet extended release 24 hr 150 mg PO QAM Qty: 90 3RF amlodipine 5 mg tablet 5 mg PO DAILY Qty: 90 2RF metoprolol succinate 25 mg tablet extended release 24 hr See Rx Instructions .ROUTE .COMPLEX Qty: 180 3RF Dose Instruction: take 1 tablet (25 mg) orally daily Rx Instructions: take 1 tablet (25 mg) orally twice daily flecainide 50 mg tablet 50 mg PO BID Referrals: Bertha Spear MD [Primary Care Provider] - Stand Alone Forms: Patient Portal/API/Survey
--- NOTE | 2024-12-01 11:54 | EKG_ITS ---
[address] [address] Test Date: 2024-12-01 Pat Name: Glenys Walters Department: Room: Gender: Female [employer] Supervisor: PILAR : 1960 Requested By: Order Number: [id number] Reading MD: Balta Copeland MD Measurements Intervals [place] Rate: 56 P: 57 [place]: 160 QRS: 71 QRSD: 100 T: 52 QT: 444 QTc: 428 Interpretive Statements Sinus bradycardia Electronically Signed On 12-02-2024 7:21:28 PDT by Balta Copeland MD
--- NOTE | 2024-12-01 12:01 | DI.RAD.S_ITS ---
PROCEDURE: XR CHEST 1V INDICATIONS: Chest Pain TECHNIQUE: One view of the chest was acquired. COMPARISON: [facility], CR, XR CHEST 1V, 07/13/2024, 15:06. FINDINGS: Surgical changes and devices: None. Lungs and pleura: Lungs are clear. No pleural effusions or pneumothorax. Mediastinum: Mediastinal contours appear normal. Heart size is normal. Bones and chest wall: No suspicious bony lesions. Overlying soft tissues appear unremarkable. IMPRESSION: No acute cardiopulmonary abnormality is seen. Dictated by: Juan Carlos Brownlee M.D. on 12/01/2024 at 12:23 Approved by: Juan Carlos Brownlee M.D. on 12/01/2024 at 12:24
[2024-12-01 12:36] LABS: Add Manual Diff / Slide Review NO; Basophils Absolute Auto 0 /uL (0-100); Basophils Percent Auto 0.6 % (0-2); Eosinophils Absolute Auto 100 /uL (0-450); Eosinophils Percent Auto 1.4 % (2-4); Hematocrit 41.7 % (36-46); Hemoglobin 14.1 g/dL (12.0-16.0); Lymphocytes Absolute Auto 1600 /uL (1100-4500); Mean Corpuscular HGB Conc 33.9 % (30-36); Mean Corpuscular Hemoglobin 30.5 PG (26-34); Mean Corpuscular Volume 89.8 fL (80-100); Monocytes Absolute Auto 500 /uL (0-900); Neutrophils Absolute Auto 5300 /uL (1500-7000); Platelet Count 184 X10^3/uL (150-400); Red Blood Cell Count 4.65 X10^6/uL (4.0-5.2); Red Cell Distribution Width 13.1 % (11.6-14.8); White Blood Cell Count 7.6 X10^3/uL (4.5-11.0)
[2024-12-01 12:43] LABS: Prothrombin Time 11.7 SECONDS (9.4-12.5)
[2024-12-01 12:46] LABS: PTT Partial Thromboplastin Tim 37 SECONDS (25.1-36.5)
[2024-12-01 12:48] LABS: Alanine Aminotransferase 18 IU/L (<35); Albumin 4.2 g/dL (3.5-5.0); Albumin Globulin Ratio 1.8 (1.0-2.8); Alkaline Phosphatase 67 U/L (38-126); Aspartate Aminotransferase 22 IU/L (14-36); BUN Creatinine Ratio 24.2 (6-22); Bilirubin Total 0.6 mg/dL (0.2-1.3); Blood Urea Nitrogen 15 mg/dL (7-17); Calcium 9.1 mg/dL (8.4-10.2); Carbon Dioxide 21 mmol/L (22-32); Chloride 109 mmol/L (98-107); Creatine Kinase 44 U/L (30-135); Estimated Glomerular Filt Rate > 60 mL/min (>60); Globulin 2.3 g/dL (1.7-4.1); Glucose 101 mg/dL (70-99); HEMOLYSIS < 15 (0-50); Lipase 40 U/L (23-300); Magnesium 1.8 mg/dL (1.6-2.3); Sodium 139 mmol/L (137-145); Total Protein 6.5 g/dL (6.3-8.2)
[2024-12-01 12:49] LABS: Lactate (Lactic Acid) 1.1 mmol/L (0.7-2.1)
[2024-12-01 13:00] LABS: NT-proBNP (BNP-Adult 18+) 191 pg/mL (<125); Troponin I < 0.012 ng/mL (0.01-0.034)
[2024-12-01 13:50] LABS: D Dimer < 215 ng/ml (<500)
[2024-12-01 15:41] LABS: Troponin I < 0.012 ng/mL (0.01-0.034)
== END 2024-12-01 18:27 | disposition home or self-care (01) ==
PROVIDERS: Emergency Provider Emergency Medicine; PCP Family Medicine
DX: R07.9 Chest pain, unspecified (principal); I10 Essential (primary) hypertension; R00.2 Palpitations; R00.1 Bradycardia, unspecified; R06.02 Shortness of breath; F17.210 Nicotine dependence, cigarettes, uncomplicated
CPT/HCPCS: 36415; 71045; 80053; 82550; 83605; 83690; 83735; 83880; 84484; 85025; 85379; 85610; 85730; 93005; 93010; 99283; 99284